=== PATIENT | male | born 1990 | race Caucasian/White ===

== ENCOUNTER 2024-05-04 12:40 | Emergency (ER) | payer MEDICAID, SELFPAY ==
[2024-05-04 12:40] VITALS: BP 150/111; PULSE 133; RESP 21; TEMP 36.8; O2SAT 100; BMI 26.6
[2024-05-04 12:55] VITALS: PULSE 136; RESP 19; O2SAT 98
--- NOTE | 2024-05-04 13:10 | PD.EDRME ---
Rapid Medical Screening Exam RME Arrival date/time: 05/04/24 12:40 Time Seen by Provider: 05/04/24 12:52 Vital signs: Vital Signs Temperature 98.3 F 05/04/24 12:40 Pulse Rate 133 H 05/04/24 12:40 Respiratory Rate 21 H 05/04/24 12:40 Blood Pressure 150/111 H 05/04/24 12:40 Pulse Oximetry (%) 100 05/04/24 12:40 Oxygen Delivery Method Room Air 05/04/24 12:40 RME Narrative: sob x20 minutes. Hx meth abuse
--- NOTE | 2024-05-04 13:11 | XR_ITS ---
Examination: AP chest single view TECHNIQUE: AP portable upright chest single view Seventh and time: May 04, 2024 1352 hours INDICATIONS: Shortness of breath beginning one hour ago. FINDINGS: Normal heart size The osseous structures are intact No pneumonia or pulmonary edema IMPRESSION: No active disease
--- NOTE | 2024-05-04 13:11 | EKG_ITS ---
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
--- NOTE | 2024-05-04 13:22 | PD.EDARRY ---
ED Arrhythmia Palp. RME/HPI General Chief Complaint: Anxiety Stated Complaint: ANXIETY Time Seen by Provider: 05/04/24 12:52 Arrival date/time: 05/04/24 12:40 RME / HPI RME / HPI narrative: sob x20 minutes. Hx meth abuse This section includes all my notes and documentations, including HPI, PE, and ED course.? Alfonso Agrawal MD HPI: 33 year old male with history of bipolar disorder, methamphetamine use and previous 5150 holds with mental health hospitalization presents to the ED BIBA from home for complaint of feeling anxious today. While in the ED patient complains of cotton mouth and feeling very thirsty. Denies any use of drugs at home. Denies taking prescription medications on a daily basis. Denies fevers, chills, chest pain, cough, abdominal pain, n/v. No other complaints. ROS: All negative except as documented in HPI. Physical Exam: General:? Alert and oriented.??Appears anxious. Eyes:? Conjunctivae and lids clear.?? ENT:? No nasal congestion.?? Neck:? Supple.?? Heart:? Sinus tachycardia at 150. Lungs:? No respiratory distress.?? Skin:? Warm and dry.?? Neuro:? Alert and oriented X 3.?? I reviewed all diagnostic test results. My interpretation of the EKG is?sinus tachycardia versus atrial flutter. My interpretation of the chest x-ray is no acute findings. Blood tests and urine tests?remarkable for negative D-dimer, negative troponin, negative BNP, and UDS positive for methamphetamine. At this point, diagnoses include?methamphetamine intoxication. Treatment here included?IV metoprolol 5 mg and oral metoprolol 100 mg. Significant improvement noted. Based on my best medical judgment, made decision no further evaluation or treatment indicated at this time.? Patient understands and agrees to the discharge instructions customized and printed, see below. Discharge instructions from Dr. Agrawal: 1. After extensive evaluation, fortunately there is no life-threatening condition.? Such as heart attack or pulmonary embolism (blood clots in your lungs) or pneumothorax (collapsed lung). 2. But methamphetamine major heart race two 150 beats per minute (almost 3X faster than normal) which can eventually cause fatal heart attacks. 3. Avoid all drugs, including methamphetamine. 4. See a private doctor on 05/07/2024. Ask to review all test results and official radiology reports, to make sure you receive all necessary follow-ups and monitoring. To make sure there is no serious underlying heart condition, ask to help you get more tests for your heart that cannot be done here in the ER.? Such as Holter Monitor (cardiac monitoring at home from a day to even a month), heart stress test (on treadmill or with medication), echocardiogram (imaging of your heart structures), heart catherization (checking for blockages in your heart arteries), and a referral to see a Paralegal Supervisor. Ask to help you stay clean. 5. Seek immediate medical care with worsening or with any concerns.?? Alfonso Agrawal MD Related Data Home Medications ?Medication ?Instructions ?Recorded ?Confirmed escitalopram oxalate 5 mg tablet 5 mg PO DAILY 03/13/24 03/13/24 olanzapine 5 mg tablet 5 mg PO DAILY 03/13/24 03/13/24 risperidone 0.5 mg tablet 1.5 mg PO BID 03/13/24 03/13/24 Previous Rx's ?Medication ?Instructions ?Recorded chlordiazepoxide HCl 25 mg capsule 25 mg PO Q8H PRN alcohol 11/22/20 withdrawal #30 caps amoxicillin 875 mg-potassium 1 tab PO BID #20 tabs 05/04/24 clavulanate 125 mg tablet ketorolac 10 mg tablet 10 mg PO Q8H PRN pain 5 days #14 05/04/24 tabs lidocaine HCl 2 % mucosal solution 5 ml PO Q3-4HRPRN PRN pain #100 mL 05/04/24 Allergies Allergy/AdvReac Type Severity Reaction Status Date / Time No Known Allergies Allergy Verified 05/04/24 16:29 Review of Systems Review of Systems Systems Reviewed: All systems reviewed, normal except as documented Past Medical History Past Medical History CARDIAC: Negative Congestive Heart Failure RESPIRATORY: Negative Chronic Obstructive Pulmonary Disease (COPD) GENITOURINARY: Negative Renal Disease ENDOCRINE: Negative Diabetes Mellitus Type 1 or Diabetes Mellitus Type 2 PSYCHO/SOCIAL: Positive Bipolar Disorder, Depression and Anxiety OTHER HISTORY: Negative Cancer Social History SMOKING STATUS: Never smoker ED Exam Narrative Physical exam: As noted in HPI Course Quality Measures none Orders Category Date Time Status EKG (ED ONLY) *Do not use* NOW Care 05/04/24 13:11 Completed Saline [Insert IV] NOW Care 05/04/24 13:19 Active Straight [In and Out Catheter] X1 Care 05/04/24 13:19 Active CXR [XR chest 1V] Stat Exams 05/04/24 13:11 Ordered EKG (ED Only) Stat Exams 05/04/24 13:11 Draft Acetaminophen Stat Lab 05/04/24 13:11 Ordered Alcohol, Blood Medical Stat Lab 05/04/24 13:11 Ordered BNP [B-Type Natriuretic Peptide] Stat Lab 05/04/24 13:11 Ordered CBC Stat Lab 05/04/24 13:11 Ordered CMP [Comprehensive Metabolic Panel] Stat Lab 05/04/24 13:11 Ordered D-Dimer Stat Lab 05/04/24 13:21 Ordered Drug Screen,Urine Stat Lab 05/04/24 13:11 Ordered Magnesium Stat Lab 05/04/24 13:11 Ordered Salicylate Stat Lab 05/04/24 13:11 Ordered Troponin I Stat Lab 05/04/24 13:11 Ordered UA [Urinalysis] Stat Lab 05/04/24 13:11 Ordered DILTIAZEM in D5W 125 MG Med 05/04/24 13:30 Ordered 125 mg in 125 ml IV 5 mg/hr Diltiazem Inj [Cardizem Inj] Med 05/04/24 13:19 Discontinued 25 mg IV X1 ONE Vital Signs Vital signs: Vital Signs Temperature 98.3 F 05/04/24 12:40 Pulse Rate 133 H 05/04/24 12:40 Respiratory Rate 21 H 05/04/24 12:40 Blood Pressure 150/111 H 05/04/24 12:40 Pulse Oximetry (%) 100 05/04/24 12:40 Oxygen Delivery Method Room Air 05/04/24 12:40 Arrhythmia/Palpitations MDM Narrative MDM Narrative:: Alana Carver am scribing for and in the presence of Dr. Agrawal. Patient data External records reviewed:: [facility] previous records (I reviewed ED visit 03/08/2024 where he was placed on a 5150 hold and observed in the ED until 03/14/2024 where he was transferred to [facility] ) Clinical information provided by:: patient Social determinants that could affect healthcare access:: substance use (Methamphetamine use ) Patient has the following chronic illnesses:: bipolar disorder, methamphetamine use and previous 5150 holds with mental health hospitalization How is presenting disease/condition affected by chronic disease/condition?: exacerbated by Evaluation data The following diagnostics were reviewed and interpreted by me:: lab results, radiology exam(s) and EKG tracing(s) (My interpretation of the EKG is: Atrial flutter (150 bpm) with nonspecific ST-T changes. Alfonso Agrawal MD) Lab and/or radiology exams considered but not ordered:: None Interpretation Summary: Methamphetamine intoxication Medications / Prescriptions Medications or Prescriptions considered but not ordered:: None Medication administrations:: IV and oral metoprolol Consultations Consultation(s) initiated? (list below): No Diagnosis Differential diagnosis arrhythmia/palpitations: palpitations, anxiety, sinus tachycardia, artial fibrillation, artial flutter and other (Methamphetamine tox occasion, electrolyte abnormalities) Most likely diagnosis given after review of the tests above:: Methamphetamine intoxication Admission Indicated Admission indicated?: not indicated Explain why admission is indicated or not indicated:: Admission criteria not met Admission Request Was there a request for admission?: No Disposition Plan Disposition Plan: Discharge Discharge Attestation Discharge Attestation: The patient and all family members were given an opportunity to ask questions and understood the discharge instructions. Discharge instructions specifically effects, indications for sooner follow up or return to the emergency department, and the expected course of current diagnosis. Patient condition: Stable Discharge Plan Plan Patient Disposition: HOME (Self Care) Prescriptions/Referrals Prescriptions/Med Rec: No Action chlordiazepoxide HCl 25 mg capsule 25 mg PO Q8H PRN (Reason: alcohol withdrawal) Qty: 30 0RF olanzapine 5 mg tablet 5 mg PO DAILY Patient Comments: TAKE 1 TABLET BY MOUTH EVERY DAY FOR 30 DAYS risperidone 0.5 mg tablet 1.5 mg PO BID escitalopram oxalate 5 mg tablet 5 mg PO DAILY Patient Comments: TAKE 1 TABLET BY MOUTH EVERY DAY ketorolac 10 mg tablet 10 mg PO Q8H PRN (Reason: pain) 5 Days Qty: 14 0RF amoxicillin-pot clavulanate 875-125 mg tablet 1 tab PO BID Qty: 20 0RF lidocaine HCl 2 % solution 5 ml PO Q3-4HRPRN PRN (Reason: pain) Qty: 100 0RF Referrals: Caleb Herman MD [Primary Care Provider] - In 1 week Problem List Clinical Impression: Methamphetamine intoxication Patient/Caregiver Discharge Instructions Discharge Activity: activity as tolerated Education Materials: ED Drug Abuse Additional Instructions: Discharge instructions from Dr. Agrawal: 1. After extensive evaluation, fortunately there is no life-threatening condition.? Such as heart attack or pulmonary embolism (blood clots in your lungs) or pneumothorax (collapsed lung). 2. But methamphetamine major heart race two 150 beats per minute (almost 3X faster than normal) which can eventually cause fatal heart attacks. 3. Avoid all drugs, including methamphetamine. 4. See a private doctor on 05/07/2024. Ask to review all test results and official radiology reports, to make sure you receive all necessary follow-ups and monitoring. To make sure there is no serious underlying heart condition, ask to help you get more tests for your heart that cannot be done here in the ER.? Such as Holter Monitor (cardiac monitoring at home from a day to even a month), heart stress test (on treadmill or with medication), echocardiogram (imaging of your heart structures), heart catherization (checking for blockages in your heart arteries), and a referral to see a Paralegal Supervisor. Ask to help you stay clean. 5. Seek immediate medical care with worsening or with any concerns.?? Print Language: [place] Stand Alone Forms: [employer] Award Info., Patient Portal Info Letter
[2024-05-04 13:32] VITALS: BP 167/119; PULSE 140
[2024-05-04] MEDS: METOPROLOL TARTRATE 25 MG TABLET 100 MG PO (13:32)
[2024-05-04 13:43] VITALS: BP 167/119; PULSE 134
[2024-05-04] MEDS: METOPROLOL TARTRATE INJ 1 MG/ML AMP 5 ML 5 MG IVP (13:43)
[2024-05-04 13:44] LABS: Collection Type, Urine Clean Catch; Squamous Epithelial Cell,Urine 0 /hpf (0-5)
[2024-05-04 13:47] LABS: Basophils % (Auto) 0 % (0-2.5); Eosinophils % (Auto) 0 % (0-10); Hematocrit 43.2 % (41.0-53.0); Hemoglobin 15.2 g/dL (13.5-16.0); Immature Granulocytes % (Auto) 0 % (0-0); Immature Granulocytes Auto 0.03 Thou/mm3 (0.00-0.00); Lymphocytes # (Auto) 1.3 Thou/mm3 (1.0-4.8); Lymphocytes % (Auto) 13 % (10-50); Mean Corpuscular HGB Conc 35.2 g/dl (31.0-37.0); Mean Corpuscular Hemoglobin 30.3 pg (25.0-35.0); Mean Corpuscular Volume 86 fL (80-100); Monocytes # (Auto) 0.5 Thou/mm3 (0.0-0.8); Monocytes % (Auto) 5 % (0-12); Neutrophils # (Auto) 7.8 Thou/mm3 (1.8-7.7); Neutrophils % (Auto) 80 % (37-80); Nucleated Red Blood Cell % 0 /100 WBC (0); Platelet Count 223 Thou/mm3 (140-440); RDW Standard Deviation 41.1 fL (35.1-43.9); Red Blood Count 5.02 Miln/mm3 (4.50-5.90); White Blood Count 9.8 Thou/mm3 (3.8-10.6)
[2024-05-04 13:49] VITALS: BP 167/119; PULSE 113; RESP 23; TEMP 36.4; O2SAT 100
--- NOTE | 2024-05-04 13:52 | EKG_ITS ---
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
[2024-05-04 13:57] LABS: Bilirubin,Urine Negative (Negative); Blood,Urine Negative (Negative); Clarity,Urine Clear (Clear/Hazy); Color,Urine Lt-Yellow (Lt Yel-Yel); Glucose, Urine Negative (Negative); Ketones,Urine 1+ (Negative); Leukocyte Esterase,Urine Negative (Negative); Nitrite,Urine Negative (Negative); PH,Urine 6.5 (5.0-7.0); Protein,Urine Negative (Neg - Trace); RBC,Urine 3 /hpf (0-3); Specific Gravity,Urine 1.014 (1.001-1.035); Urobilinogen,Urine Negative mg/dL (0.0-1.0); WBC,Urine 2 /hpf (0-5)
[2024-05-04 14:05] LABS: Amphetamine/Methamp Scrn,U Positive (Negative); Barbiturate Screen,Urine Negative (Negative); Benzodiazepines Screen,Urine Negative (Negative); Benzoylecgonine Screen, Ur Negative (Negative); Fentanyl Screen,Urine Negative (Negative); Opiate Screen,Urine Negative (Negative); THC Screen,Urine Negative (Negative)
[2024-05-04 14:10] LABS: Acetaminophen < 2.0 mcg/mL (10.0-20.0); Alanine Aminotransferase 46 U/L (10-49); Albumin, Serum 5.5 gm/dL (3.5-5.0); Albumin/Globulin Ratio 2.1 (1.2-2.2); Alcohol, Blood Medical < 3.0 mg/dL (0-10.0); Alkaline Phosphatase 83 U/L (46-116); Anion Gap 5 (7-16); Aspartate Amino Transferase 27 U/L (0-34); BUN/Creatinine Ratio 13 Ratio (12-20); Bilirubin,Total 0.9 mg/dL (0.3-1.2); Blood Urea Nitrogen 12 mg/dL (9-23); Calcium 9.8 mg/dL (8.3-10.6); Calcium (Corrected) 9.8 mg/dL (8.5-10.1); Carbon Dioxide 21.7 mMol/L (20.0-31.0); Chloride 101 mMol/L (98-107); Creatinine (Component) 0.9 mg/dL (0.6-1.3); Estimated Creatinine Clearance 103.4 mL/min (>60); Globulin 2.6 gm/dL (2.3-3.5); Glucose 102 mg/dL (74-106); Magnesium 2.1 mg/dL (1.6-2.6); Osmolality,Calculated 256 (275-295); Potassium 3.6 mMol/L (3.4-5.1); Salicylate < 3.0 mg/dL; Sodium 128 mMol/L (136-145); Total Protein 8.1 gm/dL (5.7-8.2); Troponin I < 0.020 ng/mL (0.0-0.045); eGFR > 60 See Note
[2024-05-04 14:13] LABS: B-Type Natriuretic Peptide < 20 pg/mL (0-100)
[2024-05-04 14:19] LABS: D-Dimer < 250 ng/mL (<600)
[2024-05-04 14:49] VITALS: BP 146/101; PULSE 102; RESP 19; O2SAT 98
[2024-05-04 15:05] LABS: Thyroid Stimulating Hormone 1.07 uIU/mL (0.55-4.78)
--- NOTE | 2024-05-04 15:49 | PC.NURSE ---
Discharge given to patient. Patient verbalized understaning. No signs of acute distress noted.
--- NOTE | 2024-05-04 15:56 | PC.CC ---
Ariella LUIS was consulted by MONIKA Joshi regarding patient needing a ride back home upon discharge. ASW arranged transportation via [facility] for patient back home.
== END 2024-05-04 15:52 | disposition home or self-care (01) ==
PROVIDERS: Physician Assistant; Emergency Provider Emergency Medicine; PCP Family Medicine
DX: F15.129 Other stimulant abuse with intoxication, unspecified (principal); R00.0 Tachycardia, unspecified
CPT/HCPCS: 36415; 71045; 80053; 80307; 80320; 80329; 81001; 83735; 83880; 84443; 84484; 85025; 85379; 93005; 96374; 99284; J3490; A9270; G0480

== ENCOUNTER 2024-05-04 16:27 | Emergency (ER) | payer MEDICAID, SELFPAY ==
[2024-05-04 16:39] VITALS: BP 157/89; PULSE 108; RESP 20; TEMP 36.8; O2SAT 98; BMI 25.8
--- NOTE | 2024-05-04 16:50 | EDNOTE_ITS ---
ED Dental RME/HPI General Chief complaint: Dental/Oral/Throat Stated complaint: MOUTH PAIN 1500 TODAY Time Seen by Provider: 05/04/24 16:33 Arrival date/time: 05/04/24 16:27 RME / HPI RME / HPI Narrative: This section includes all my notes and documentations, including HPI, PE, and ED course. Alfonso Agrawal MD HPI: 33-year-old male here to be evaluated with several days of worsening right-sided dental pain, upper and lower. No fever or chills. No body aches or malaise. No cough or congestion. No sore throat. No other complaints. ROS: All negative except as documented in HPI. Physical Exam: General: Alert and oriented. Eyes: Conjunctivae and lids clear. ENT: In the mouth, diffuse and severe dental caries noted. Right-sided upper and lower gums remarkable for erythema and edema and tenderness. No fluctuant mass palpable. Neck: Supple. Lungs: No respiratory distress. Skin: Warm and dry. Neuro: Alert and oriented X 3. Make clinical diagnosis of infected dental caries. Prescribed ABX and recommended more care with dentist. Based on my best medical judgment, made decision no further evaluation or treatment indicated at this time. Patient understands and agrees to the discharge instructions customized and printed, see below. Discharge Instructions from Dr. Agrawal: --After evaluation, your dental pain is due to an underlying infection.?? --Take Augmentin to help kill the germs causing your infection.? Unless we treat the underlying infection, pain medications won?t work.?? --Ketorolac as needed.? Will work better with the antibiotics.? --Apply Lidocaine as needed.? Soak Lidocaine in a gauze and apply in the area of pain for 15 minutes to help the pain for a couple of hours.?? --Most importantly, see a dentist of your choice on 05/07/2024 for definitive treatment you need not available in the ER.? You will need to call dental offices in all surrounding towns to find a dentist who can see you and treat you right away.? ?Seek immediate medical care with fever or with any concerns. Alfonso Agrawal MD Related Data Home Medications ?Medication ?Instructions ?Recorded ?Confirmed escitalopram oxalate 5 mg tablet 5 mg PO DAILY 03/13/24 03/13/24 olanzapine 5 mg tablet 5 mg PO DAILY 03/13/24 03/13/24 risperidone 0.5 mg tablet 1.5 mg PO BID 03/13/24 03/13/24 Previous Rx's ?Medication ?Instructions ?Recorded chlordiazepoxide HCl 25 mg capsule 25 mg PO Q8H PRN alcohol 11/22/20 withdrawal #30 caps amoxicillin 875 mg-potassium 1 tab PO BID #20 tabs 05/04/24 clavulanate 125 mg tablet ketorolac 10 mg tablet 10 mg PO Q8H PRN pain 5 days #14 05/04/24 tabs lidocaine HCl 2 % mucosal solution 5 ml PO Q3-4HRPRN PRN pain #100 mL 05/04/24 Allergies Allergy/AdvReac Type Severity Reaction Status Date / Time No Known Allergies Allergy Verified 05/04/24 16:29 Course Quality Measures none Vital Signs Vital signs: Vital Signs Temperature 98.2 F 05/04/24 16:39 Pulse Rate 108 H 05/04/24 16:39 Respiratory Rate 20 05/04/24 16:39 Blood Pressure 157/89 H 05/04/24 16:39 Pulse Oximetry (%) 98 05/04/24 16:39 Oxygen Delivery Method Room Air 05/04/24 16:39 Dental / Oral Patient data External records reviewed:: [facility] previous records Clinical information provided by:: patient Social determinants that could affect healthcare access:: substance use Patient has the following chronic illnesses:: Substance abuse How is presenting disease/condition affected by chronic disease/condition?: exacerbated by Evaluation data The following diagnostics were reviewed and interpreted by me:: other (specify) (No diagnostic tests ordered) Lab and/or radiology exams considered but not ordered:: None Interpretation Summary: Not applicable Medications / Prescriptions Medications or Prescriptions considered but not ordered:: None Medication administrations:: None Consultations Consultation(s) initiated? (list below): No Diagnosis Dental Differential Diagnosis: other (Infected dental caries) Most likely diagnosis given after review of the tests above:: Infected dental caries Admission Indicated Admission indicated?: not indicated Explain why admission is indicated or not indicated:: Admission criteria not met Admission Request Was there a request for admission?: No Disposition Plan Disposition Plan: Discharge Discharge Attestation Discharge Attestation: The patient and all family members were given an opportunity to ask questions and understood the discharge instructions. Discharge instructions specifically effects, indications for sooner follow up or return to the emergency department, and the expected course of current diagnosis. Patient condition: Stable Discharge Plan Plan Patient Disposition: HOME (Self Care) Prescriptions/Referrals Prescriptions/Med Rec: New ketorolac 10 mg tablet 10 mg PO Q8H PRN (Reason: pain) 5 Days Qty: 14 0RF amoxicillin-pot clavulanate 875-125 mg tablet 1 tab PO BID Qty: 20 0RF lidocaine HCl 2 % solution 5 ml PO Q3-4HRPRN PRN (Reason: pain) Qty: 100 0RF No Action chlordiazepoxide HCl 25 mg capsule 25 mg PO Q8H PRN (Reason: alcohol withdrawal) Qty: 30 0RF olanzapine 5 mg tablet 5 mg PO DAILY Patient Comments: TAKE 1 TABLET BY MOUTH EVERY DAY FOR 30 DAYS risperidone 0.5 mg tablet 1.5 mg PO BID escitalopram oxalate 5 mg tablet 5 mg PO DAILY Patient Comments: TAKE 1 TABLET BY MOUTH EVERY DAY Problem List Clinical Impression: Infected dental caries Patient/Caregiver Discharge Instructions Discharge Activity: activity as tolerated Education Materials: ED Dental Cavity, ED Dental Abscess Additional Instructions: Discharge Instructions from Dr. Agrawal: --After evaluation, your dental pain is due to an underlying infection.?? --Take Augmentin to help kill the germs causing your infection.? Unless we treat the underlying infection, pain medications won?t work.?? --Ketorolac as needed.? Will work better with the antibiotics.? --Apply Lidocaine as needed.? Soak Lidocaine in a gauze and apply in the area of pain for 15 minutes to help the pain for a couple of hours.?? --Most importantly, see a dentist of your choice on 05/07/2024 for definitive treatment you need not available in the ER.? You will need to call dental offices in all surrounding towns to find a dentist who can see you and treat you right away.? ?Seek immediate medical care with fever or with any concerns. Print Language: [place] Stand Alone Forms: Muna Award Info., Patient Portal Info Letter
--- NOTE | 2024-05-04 19:12 | PC.NURSE ---
pt eloped 1645. Pt was to be discharged and was supposed to receive abx for underlying dental infection. Pt eloped and never received discharge instruction or medications.
== END 2024-05-04 16:45 | disposition left against medical advice (07) ==
LOC: SERX 16:58
PROVIDERS: Emergency Provider Emergency Medicine
DX: K04.7 Periapical abscess without sinus (principal); K02.9 Dental caries, unspecified
CPT/HCPCS: 99281

== ENCOUNTER 2024-05-22 16:21 | Emergency (ER) | payer MEDICAID, SELFPAY ==
[2024-05-22 16:22] VITALS: PULSE 74; RESP 20; O2SAT 99
[2024-05-22 16:23] VITALS: BP 142/85; PULSE 146; RESP 20; TEMP 36.9; O2SAT 95
[2024-05-22 16:27] VITALS: BMI 26.6
--- NOTE | 2024-05-22 16:47 | PD.EDADULT ---
ED General RME/HPI General Chief complaint: Psychiatric Symptoms Stated complaint: HOLD Time Seen by Provider: 05/22/24 16:43 Arrival date/time: 05/22/24 16:21 CC: On psychiatric hold, patient has no specific complaints, reports the patient has been awake for the last 2 to 3 days mother is concerned the patient may have a urinary tract infection, the patient has not been eating by admission. Patient denies fever chills chest pain or shortness of breath. Patient denies he heard voices that told him they are going to hurt him Related Data Home Medications ?Medication ?Instructions ?Recorded ?Confirmed olanzapine 5 mg tablet 5 mg PO DAILY 03/13/24 05/22/24 gabapentin 300 mg capsule 100 mg PO TID 05/22/24 05/22/24 Allergies Allergy/AdvReac Type Severity Reaction Status Date / Time No Known Allergies Allergy Verified 05/22/24 16:27 Review of Systems Review of Systems Narrative Review of Systems: GEN: No fever, no chills, no weight loss EYES: No discharge, no visual changes, no pain HEENT: No ear pain, no congestion, no sore throat PULM: No shortness of breath, no cough, no congestion CV: No chest pain, no dyspnea on exertion, no palpitations GI: No nausea, no vomiting, no diarrhea, no pain, no constipation : No frequency, no urgency, no dysuria MUSC/SKEL: No joint pain, no back pain SKIN: No rash PSYCH: No hallucinations, no depression HEME/LYMPH: No easy bleeding or bruising tendencies NEURO: No weakness, no headache Past Medical History Past Medical History CARDIAC: Negative Congestive Heart Failure RESPIRATORY: Negative Chronic Obstructive Pulmonary Disease (COPD) GENITOURINARY: Negative Renal Disease ENDOCRINE: Negative Diabetes Mellitus Type 1 or Diabetes Mellitus Type 2 PSYCHO/SOCIAL: Positive Bipolar Disorder, Depression and Anxiety OTHER HISTORY: Negative Cancer Social History SMOKING STATUS: Never smoker ED Exam Narrative Physical exam: [General: Anxious but not in any acute distress Head normocephalic HEENT: Within acceptable limits Neck is supple nontender Chest equal chest rise nontender to palpation Respiratory: Clear to auscultation no wheezes crackles or rubs CV: Rate rhythm is regular no murmurs rubs or clicks Abdomen is soft nontender no masses positive bowel sounds all 4 quadrants Back: No CVA tenderness no spinous process tenderness from cervical spine thoracic and lumbar spine Skin: Intact no petechiae rash induration ulceration or crepitus Extremities: Moving all extremity against resistance cap refill less than 2 seconds neurosensory intact Neuro: Awake alert oriented x3 Glascow coma 15 no focal deficits] Course Quality Measures none Orders Category Date Time Status Saline [Insert IV] NOW Care 05/22/24 17:58 Completed Alcohol, Blood Medical Stat Lab 05/22/24 18:17 Completed CBC Stat Lab 05/22/24 16:58 Completed CMP [Comprehensive Metabolic Panel] Stat Lab 05/23/24 03:44 Completed CMP [Comprehensive Metabolic Panel] Stat Lab 05/22/24 16:58 Completed Creatine Kinase Stat Lab 05/23/24 03:44 Completed Creatine Kinase Stat Lab 05/22/24 18:17 Completed Creatine Kinase Stat Lab 05/22/24 20:56 Completed Drug Screen,Urine Stat Lab 05/22/24 17:24 Completed Urinalysis Stat Lab 05/22/24 17:24 Completed DiphenhydrAMINE INJ [Benadryl Inj] Med 05/22/24 18:15 Discontinued 50 mg IVP X1 ONE Haloperidol Lactate [Haldol Inj] Med 05/22/24 18:15 Discontinued 5 mg IV Q6HR PRN LORazepam [Ativan Inj] Med 05/22/24 18:15 Discontinued 2 mg IVP X1 ONE Sodium Chloride 0.9% 1000 ml [Ns] 1,000 ml Med 05/22/24 19:39 Discontinued IV 250 mls/hr Sodium Chloride 0.9% 1000 ml [Ns] 1,000 ml Med 05/22/24 17:59 Discontinued IV 999 mls/hr Sodium Chloride 0.9% 1000 ml [Ns] 1,000 ml Med 05/22/24 17:59 Discontinued IV 999 mls/hr Late Tray Request Routine Oth 05/23/24 08:09 Active Vital Signs Vital signs: Vital Signs Temperature 98.4 F 05/22/24 16:23 Pulse Rate 146 H 05/22/24 16:23 Respiratory Rate 20 05/22/24 16:23 Blood Pressure 142/85 H 05/22/24 16:23 Pulse Oximetry (%) 95 05/22/24 16:23 Oxygen Delivery Method Room Air 05/22/24 16:23 [facility] Patient data External records reviewed:: [facility] previous records and EMS form Clinical information provided by:: patient and EMS Social determinants that could affect healthcare access:: none Patient has the following chronic illnesses:: Methamphetamine use polysubstance abuse How is presenting disease/condition affected by chronic disease/condition?: exacerbated by Evaluation data The following diagnostics were reviewed and interpreted by me:: lab results Lab and/or radiology exams considered but not ordered:: CBC shows a mild leukocytosis of 12,000 with no anemia thrombocytopenia CMP shows a BUN and creatinine of 3 7 and 1.6. No significant lecture imbalances. T. bili is 2.0 with some mild transaminitis (review of the medical record show the patient has a T. bili that is a wide ranging from as high as 2.6 to normal.) Urine is negative for UTI UDS is positive for methamphetamines. CK is 1900, after 2 L reflex CK is 1350. Interpretation Summary: Schizophrenia with methamphetamine use Medications Medications considered but not ordered:: None Medication administrations:: Medication Administration History Discontinued Medications Diphenhydramine HCl (Diphenhydramine Inj 50 Mg/Ml Vial) 50 mg IVP X1 ONE Stop: 05/22/24 18:16 Last Admin: 05/22/24 18:22 Dose: 50 mg Documented By: GM Haloperidol Lactate (Haloperidol Lact Inj 5 Mg/Ml Vial) 5 mg IV Q6HR PRN PRN Reason: AGITATION (SEVERE) Stop: 05/27/24 18:14 Last Admin: 05/22/24 18:22 Dose: 5 mg Documented By: GM Sodium Chloride (Ns) 1,000 mls @ 999 mls/hr IV .Q1H1M ONE Stop: 05/22/24 18:59 Last Infusion: 05/22/24 19:20 Dose: Infused Documented By: Admin: 05/22/24 18:18 Dose: 999 mls/hr Documented By: GM Sodium Chloride (Ns) 1,000 mls @ 999 mls/hr IV .Q1H1M ONE Stop: 05/22/24 18:59 Last Infusion: 05/22/24 19:20 Dose: Infused Documented By: Admin: 05/22/24 18:18 Dose: 999 mls/hr Documented By: GM Sodium Chloride (Ns) 1,000 mls @ 250 mls/hr IV .Q4H LUIGI Stop: 06/21/24 19:38 Last Admin: 05/23/24 08:10 Dose: 250 mls/hr Documented By: Infusion: 05/23/24 08:10 Dose: Infused Documented By: Admin: 05/23/24 04:32 Dose: 250 mls/hr Documented By: Infusion: 05/23/24 03:24 Dose: Infused Documented By: Admin: 05/22/24 22:56 Dose: 250 mls/hr Documented By: Infusion: 05/22/24 22:55 Dose: Infused Documented By: Admin: 05/22/24 20:19 Dose: 250 mls/hr Documented By: CVL Lorazepam (Lorazepam 2 Mg/Ml Vial) 2 mg IVP X1 ONE Stop: 05/22/24 18:16 Last Admin: 05/22/24 18:22 Dose: 2 mg Documented By: GM None Consultations Consultation(s) initiated? (list below): No Diagnosis Differential Diagnosis ED Complaint MDM: Schizophrenia polysubstance abuse electrolyte imbalance rhabdomyolysis Most likely diagnosis given after review of the tests above:: Schizophrenia rhabdomyolysis Admission Indicated Admission indicated?: indicated Explain why admission is indicated or not indicated:: Transfer Admission Request Was there a request for admission?: No Disposition Plan Disposition Plan: Transfer Medical Decision Making Differential Diagnosis Differential Diagnosis: Schizophrenia polysubstance abuse electrolyte imbalance rhabdomyolysis Lab Data 05/22/24 16:58 05/23/24 03:44 Labs: Lab Results 05/22/24 05/22/24 05/22/24 Range/Units 16:58 17:24 18:17 WBC 12.2 H (3.8-10.6) Thou/mm3 RBC 5.35 (4.50-5.90) Miln/mm3 Hgb 16.2 H (13.5-16.0) g/dL Hct 45.8 (41.0-53.0) % MCV 86 (80-100) fL MCH 30.3 (25.0-35.0) pg MCHC 35.4 (31.0-37.0) g/dl RDW Std Deviation 40.7 (35.1-43.9) fL Plt Count 307 D (140-440) Thou/mm3 Neut % (Auto) 81 H (37-80) % Lymph % (Auto) 10 (10-50) % Hernando % (Auto) 8 (0-12) % Eos % (Auto) 0 (0-10) % Baso % (Auto) 1 (0-2.5) % Neut # (Auto) 9.8 H (1.8-7.7) Thou/mm3 Lymph # (Auto) 1.3 (1.0-4.8) Thou/mm3 Hernando # (Auto) 0.9 H (0.0-0.8) Thou/mm3 Eos # (Auto) 0.0 (0.0-0.5) Thou/mm3 Baso # (Auto) 0.1 (0.0-0.2) Thou/mm3 Immature Gran # (Auto) 0.05 H (0.00-0.00) Thou/mm3 Absolute Nucleated RBC 0.00 (0.00-0.00) Thou/mm3 Immature Gran % 0 (0-0) % Nucleated RBC % 0 (0) /100 WBC Sodium 137 (136-145) mMol/L Potassium 3.9 (3.4-5.1) mMol/L Chloride 103 (98-107) mMol/L Carbon Dioxide 21.0 (20.0-31.0) mMol/L Anion Gap 13 (7-16) BUN 37 H (9-23) mg/dL Creatinine 1.6 H (0.6-1.3) mg/dL Estim Creat Clear Calc 60.2 L (>60) mL/min eGFR 57 L (60 - ) See Note BUN/Creatinine Ratio 23 H (12-20) Ratio Glucose 128 H (74-106) mg/dL Calculated Osmolality 284 (275-295) Calcium 10.4 (8.3-10.6) mg/dL Corrected Calcium 10.4 H (8.5-10.1) mg/dL Total Bilirubin 2.0 H (0.3-1.2) mg/dL AST 106 H (0-34) U/L ALT 97 H (10-49) U/L Alkaline Phosphatase 84 (46-116) U/L Total Creatine Kinase 1978 H (34-171) U/L Total Protein 8.5 H (5.7-8.2) gm/dL Albumin 5.6 H (3.5-5.0) gm/dL Globulin 2.9 (2.3-3.5) gm/dL Albumin/Globulin Ratio 1.9 (1.2-2.2) Ur Collection Type Clean Catch Urine Color Yellow (Lt Yel-Yel) Urine Clarity Clear (Clear/Hazy) Urine pH 6.0 (5.0-7.0) Ur Specific Diamond 1.034 (1.001-1.035) Urine Protein 2+ A (Neg - Trace) Urine Glucose (UA) Negative (Negative) Urine Ketones 2+ A (Negative) Urine Blood Negative (Negative) Urine Nitrite Negative (Negative) Urine Bilirubin 1+ A (Negative) Urine Urobilinogen (Auto) 2.0 (0.0-1.0) mg/dL Ur Leukocyte Esterase Negative (Negative) Urine RBC 2 (0-3) /hpf Urine WBC 3 (0-5) /hpf Ur Squamous Epith Cells < 1 (0-5) /hpf Urine Bacteria None (None) Hyaline Casts 1 (0-1) /hpf Urine Opiates Screen Negative (Negative) Urine Fentanyl Screen Negative (Negative) Ur Barbiturates Screen Negative (Negative) U Amphetamin/Meth Scrn Positive A (Negative) U Benzodiazepines Scrn Negative (Negative) U Cocaine Metab Screen Negative (Negative) U Marijuana (THC) Screen Negative (Negative) Ethyl Alcohol < 3.0 (0-10.0) mg/dL 05/22/24 05/23/24 Range/Units 20:56 03:44 WBC (3.8-10.6) Thou/mm3 RBC (4.50-5.90) Miln/mm3 Hgb (13.5-16.0) g/dL Hct (41.0-53.0) % MCV (80-100) fL MCH (25.0-35.0) pg MCHC (31.0-37.0) g/dl RDW Std Deviation (35.1-43.9) fL Plt Count (140-440) Thou/mm3 Neut % (Auto) (37-80) % Lymph % (Auto) (10-50) % Hernando % (Auto) (0-12) % Eos % (Auto) (0-10) % Baso % (Auto) (0-2.5) % Neut # (Auto) (1.8-7.7) Thou/mm3 Lymph # (Auto) (1.0-4.8) Thou/mm3 Hernando # (Auto) (0.0-0.8) Thou/mm3 Eos # (Auto) (0.0-0.5) Thou/mm3 Baso # (Auto) (0.0-0.2) Thou/mm3 Immature Gran # (Auto) (0.00-0.00) Thou/mm3 Absolute Nucleated RBC (0.00-0.00) Thou/mm3 Immature Gran % (0-0) % Nucleated RBC % (0) /100 WBC Sodium 139 (136-145) mMol/L Potassium 4.1 (3.4-5.1) mMol/L Chloride 108 H (98-107) mMol/L Carbon Dioxide 25.5 (20.0-31.0) mMol/L Anion Gap 6 L (7-16) BUN 20 (9-23) mg/dL Creatinine 1.0 D (0.6-1.3) mg/dL Estim Creat Clear Calc 96.4 (>60) mL/min eGFR > 60 (60 - ) See Note BUN/Creatinine Ratio 20 (12-20) Ratio Glucose 94 (74-106) mg/dL Calculated Osmolality 280 (275-295) Calcium 8.5 D (8.3-10.6) mg/dL Corrected Calcium 8.5 D (8.5-10.1) mg/dL Total Bilirubin 1.8 H (0.3-1.2) mg/dL AST 82 H (0-34) U/L ALT 89 H (10-49) U/L Alkaline Phosphatase 64 D (46-116) U/L Total Creatine Kinase 1358 H D 1140 H D (34-171) U/L Total Protein 6.1 (5.7-8.2) gm/dL Albumin 4.1 D (3.5-5.0) gm/dL Globulin 2.0 L (2.3-3.5) gm/dL Albumin/Globulin Ratio 2.1 (1.2-2.2) Ur Collection Type Urine Color (Lt Yel-Yel) Urine Clarity (Clear/Hazy) Urine pH (5.0-7.0) Ur Specific Diamond (1.001-1.035) Urine Protein (Neg - Trace) Urine Glucose (UA) (Negative) Urine Ketones (Negative) Urine Blood (Negative) Urine Nitrite (Negative) Urine Bilirubin (Negative) Urine Urobilinogen (Auto) (0.0-1.0) mg/dL Ur Leukocyte Esterase (Negative) Urine RBC (0-3) /hpf Urine WBC (0-5) /hpf Ur Squamous Epith Cells (0-5) /hpf Urine Bacteria (None) Hyaline Casts (0-1) /hpf Urine Opiates Screen (Negative) Urine Fentanyl Screen (Negative) Ur Barbiturates Screen (Negative) U Amphetamin/Meth Scrn (Negative) U Benzodiazepines Scrn (Negative) U Cocaine Metab Screen (Negative) U Marijuana (THC) Screen (Negative) Ethyl Alcohol (0-10.0) mg/dL Discharge Plan Plan Patient Disposition: [facility] Facility Disposition Comment: [facility] Prescriptions/Referrals Prescriptions/Med Rec: No Action olanzapine 5 mg tablet 5 mg PO DAILY Patient Comments: TAKE 1 TABLET BY MOUTH EVERY DAY FOR 30 DAYS gabapentin 300 mg capsule 100 mg PO TID Referrals: Igor Cabrera MD [Primary Care Provider] - In 1 week Problem List Clinical Impression: Schizophrenia, Bipolar disorder, Methamphetamine abuse, Rhabdomyolysis Patient/Caregiver Discharge Instructions Print Language: Bengali Stand Alone Forms: Muna Award Info., Patient Portal Info Letter PA/HUMAN RESOURCES TRAINER Supervising Physician PA/HUMAN RESOURCES TRAINER Supervising Physician: Ankush Carnes ENP
--- NOTE | 2024-05-22 16:50 | PC.CC ---
Pt Carlton Etienne is a 33 yr old male to ED on 5150 hold placed by [facility] Crisis team. Hold placed for DTS. From hold pt responding to stimuli, refusing to eat. Pt is non-complaint with prescribed MH medications, pt refusing to engage in services. Pt recently d/c from [facility] facility in [place] on 05/19/24. At this time pt is pending medical clearance for placement.
[2024-05-22 17:06] LABS: Basophils # (Auto) 0.1 Thou/mm3 (0.0-0.2); Basophils % (Auto) 1 % (0-2.5); Eosinophils % (Auto) 0 % (0-10); Hematocrit 45.8 % (41.0-53.0); Hemoglobin 16.2 g/dL (13.5-16.0); Immature Granulocytes % (Auto) 0 % (0-0); Immature Granulocytes Auto 0.05 Thou/mm3 (0.00-0.00); Lymphocytes # (Auto) 1.3 Thou/mm3 (1.0-4.8); Lymphocytes % (Auto) 10 % (10-50); Mean Corpuscular HGB Conc 35.4 g/dl (31.0-37.0); Mean Corpuscular Hemoglobin 30.3 pg (25.0-35.0); Mean Corpuscular Volume 86 fL (80-100); Monocytes # (Auto) 0.9 Thou/mm3 (0.0-0.8); Monocytes % (Auto) 8 % (0-12); Neutrophils # (Auto) 9.8 Thou/mm3 (1.8-7.7); Neutrophils % (Auto) 81 % (37-80); Nucleated Red Blood Cell % 0 /100 WBC (0); Platelet Count 307 Thou/mm3 (140-440); RDW Standard Deviation 40.7 fL (35.1-43.9); Red Blood Count 5.35 Miln/mm3 (4.50-5.90); White Blood Count 12.2 Thou/mm3 (3.8-10.6)
[2024-05-22 17:29] LABS: Alanine Aminotransferase 97 U/L (10-49); Albumin, Serum 5.6 gm/dL (3.5-5.0); Albumin/Globulin Ratio 1.9 (1.2-2.2); Alkaline Phosphatase 84 U/L (46-116); Anion Gap 13 (7-16); Aspartate Amino Transferase 106 U/L (0-34); BUN/Creatinine Ratio 23 Ratio (12-20); Blood Urea Nitrogen 37 mg/dL (9-23); Calcium 10.4 mg/dL (8.3-10.6); Calcium (Corrected) 10.4 mg/dL (8.5-10.1); Chloride 103 mMol/L (98-107); Creatinine (Component) 1.6 mg/dL (0.6-1.3); Estimated Creatinine Clearance 60.2 mL/min (>60); Globulin 2.9 gm/dL (2.3-3.5); Glucose 128 mg/dL (74-106); Osmolality,Calculated 284 (275-295); Potassium 3.9 mMol/L (3.4-5.1); Sodium 137 mMol/L (136-145); Total Protein 8.5 gm/dL (5.7-8.2); eGFR 57 See Note
[2024-05-22 17:58] LABS: Collection Type, Urine Clean Catch
[2024-05-22] MEDS: SODIUM CHLORIDE 0.9% 1000 ML 1,000 ML 999 ML IV ×2 (18:18)
[2024-05-22 18:20] VITALS: BP 108/60; PULSE 126; RESP 20; TEMP 36.7; O2SAT 97
[2024-05-22] MEDS: LORazepam 2 MG/ML VIAL IVP (18:22)
[2024-05-22] MEDS: DiphenhydrAMINE INJ 50 MG/ML VIAL IVP (18:22)
[2024-05-22] MEDS: HALOPERIDOL LACT INJ 5 MG/ML VIAL IV (18:22)
[2024-05-22 18:24] LABS: Amphetamine/Methamp Scrn,U Positive (Negative); Barbiturate Screen,Urine Negative (Negative); Benzodiazepines Screen,Urine Negative (Negative); Benzoylecgonine Screen, Ur Negative (Negative); Bilirubin,Urine 1+ (Negative); Blood,Urine Negative (Negative); Clarity,Urine Clear (Clear/Hazy); Color,Urine Yellow (Lt Yel-Yel); Fentanyl Screen,Urine Negative (Negative); Glucose, Urine Negative (Negative); Hyaline Casts,Urine 1 /hpf (0-1); Ketones,Urine 2+ (Negative); Leukocyte Esterase,Urine Negative (Negative); Nitrite,Urine Negative (Negative); Opiate Screen,Urine Negative (Negative); Protein,Urine 2+ (Neg - Trace); RBC,Urine 2 /hpf (0-3); Specific Gravity,Urine 1.034 (1.001-1.035); Squamous Epithelial Cell,Urine < 1 /hpf (0-5); THC Screen,Urine Negative (Negative); WBC,Urine 3 /hpf (0-5)
--- NOTE | 2024-05-22 18:31 | PC.NURSE ---
Erika LESTER ELOCUTION TEACHER MADE AWARE THAT PT TACHYCARDIC AT 126. NO NEW ORDERS AT THIS TIME. 2L OF NS BOLUS IV CURRENTLY RUNNING.
[2024-05-22 19:35] LABS: Creatine Kinase 1978 U/L (34-171)
[2024-05-22 20:02] LABS: Alcohol, Blood Medical < 3.0 mg/dL (0-10.0)
[2024-05-22] MEDS: SODIUM CHLORIDE 0.9% 1000 ML 1,000 ML 250 ML IV ×2 (20:19→22:56)
[2024-05-22 21:04] VITALS: BP 128/74; PULSE 100; RESP 20; TEMP 36.7; O2SAT 99
[2024-05-22 21:42] LABS: Creatine Kinase 1358 U/L (34-171)
--- NOTE | 2024-05-22 23:21 | PD.EDADDENDU ---
Emergency Room Addendum Addendum Narrative: 2300: Care assumed from Ankush Carnes NP, the previous shift emergency physician. Past medical, surgical, social and family history reviewed. Vitals and home medications reviewed. Results and treatment plan discussed. I will assume the care of the patient at this time and will follow the patient, pending repeat CK and CMP. Please refer to the emergency department record for history and examination from initial visit. Repeat CMP at 0344 showed an improved Total Bilirubin at 1.8 (compared to 2.0), improved CK of 1140 (compared to 1977 and 1358), and improved Albumin of 4.1 (previously 5.6). 0535: Patient is medically clear and is pending psychiatric placement. 0600: Care signed out to Dr. Henriquez (emergency physician). Past medical, surgical, social and family history reviewed. Vitals and home medications reviewed. Results and treatment plan discussed. They will assume the care of the patient at this time and will follow the patient, pending psychiatric evaluation/placement.
[2024-05-23 04:25] LABS: Alanine Aminotransferase 89 U/L (10-49); Albumin, Serum 4.1 gm/dL (3.5-5.0); Albumin/Globulin Ratio 2.1 (1.2-2.2); Alkaline Phosphatase 64 U/L (46-116); Anion Gap 6 (7-16); Aspartate Amino Transferase 82 U/L (0-34); BUN/Creatinine Ratio 20 Ratio (12-20); Bilirubin,Total 1.8 mg/dL (0.3-1.2); Blood Urea Nitrogen 20 mg/dL (9-23); Calcium 8.5 mg/dL (8.3-10.6); Calcium (Corrected) 8.5 mg/dL (8.5-10.1); Carbon Dioxide 25.5 mMol/L (20.0-31.0); Chloride 108 mMol/L (98-107); Creatine Kinase 1140 U/L (34-171); Estimated Creatinine Clearance 96.4 mL/min (>60); Glucose 94 mg/dL (74-106); Osmolality,Calculated 280 (275-295); Potassium 4.1 mMol/L (3.4-5.1); Sodium 139 mMol/L (136-145); Total Protein 6.1 gm/dL (5.7-8.2); eGFR > 60 See Note
[2024-05-23] MEDS: SODIUM CHLORIDE 0.9% 1000 ML 1,000 ML 250 ML IV ×2 (04:32→08:10)
[2024-05-23 04:47] VITALS: BP 116/72; PULSE 94; RESP 18; O2SAT 97
--- NOTE | 2024-05-23 06:14 | PD.EDADDENDU ---
Emergency Room Addendum Addendum Narrative: 0600: Care assumed from Dr. Mike, the previous shift emergency physician. Past medical, surgical, social and family history reviewed. Vitals and home medications reviewed. I will assume the care of the patient at this time, pending psychiatric placement. Please refer to the emergency department record for history and examination from initial visit.? The patient was placed in ED observation care at 05/23/2024 at 0600 hours. The patient was placed in ED observation care because of undifferentiated decompensated behavioral health evaluation/ placement. The patients past medical history, social history, and family history were reviewed. The plan of care will include serial examinations. While in ED observation the patient will have access to water, food, and personal hygiene. If the patient takes home medication(s), they will be continued in ED observation. Physical exam by me shows patient under no acute distress at this time. 0845: Patient accepted to [facility]. ED observation care ended at 05/23/2024 at 0900 hours. Diagnoses: schizophrenia, bipolar disorder, methamphetamine abuse, rhabdomyolysis.
[2024-05-23 06:45] VITALS: BP 122/76; PULSE 87; RESP 18; TEMP 36.8; O2SAT 97
[2024-05-23 08:00] VITALS: BP 108/55; PULSE 94; RESP 19; TEMP 36.6; O2SAT 98
--- NOTE | 2024-05-23 08:09 | PC.CC ---
Ariella LUIS sent referral to LPS facilities. Provided information to Dr. Henriquez and router tender Diana.
--- NOTE | 2024-05-23 08:44 | PC.CC ---
Patient was accepted to [facility]. Patient was provided with information of accepting facility. Dr. Henriquez, industrial sewer Diana, and Bedside RN provided with discharge plan. ASW arranging transportation.
== END 2024-05-23 09:36 ==
PROVIDERS: Registered Nurse General Practice; Emergency Provider Emergency Medicine; PCP Emergency Medicine; Referring Provider Emergency Medicine
DX: Z00.8 Encounter for other general examination (principal); F20.9 Schizophrenia, unspecified; F31.9 Bipolar disorder, unspecified; M62.82 Rhabdomyolysis; F15.10 Other stimulant abuse, uncomplicated; Z75.1 Person awaiting admission to adequate facility elsewhere
CPT/HCPCS: 36415; 80053; 80307; 80320; 81001; 82550; 85025; 96127; 96361; 96374; 96375; 99285; J1200; J1630; J2060; J7030; G0480

== ENCOUNTER 2024-10-16 01:06 | Emergency (ER) | payer MEDICAID, SELFPAY ==
--- NOTE | 2024-10-16 01:14 | EDNOTE_ITS ---
ED Medical Clearance RME/HPI General Chief complaint: Medical Clearance Stated complaint: RESIDENTIAL CLEARANCE Arrival date/time: 10/16/24 01:06 RME / HPI RME / HPI Narrative: This section includes all my notes and documentations, including HPI, PE, and ED course. Alfonso Agrawal MD HPI: 34yo male BIB PPD presents to the ED for a medical clearance. Per PPD, patient was brought in due to his blood pressure and fast heart rate. Patient endorses having palpitations. Patient denies any chest pain, shortness of breath, nausea, vomiting or any other associated symptoms. Patient does admit to using methamphetamines. No other complaints reported. ROS: All negative except as documented in HPI. Physical Exam: General: Alert. Eyes: Conjunctivae and lids clear. PERRL. EOMI. High BP noted. ENT: No nasal congestion. Neck: Supple. Heart: Sinus tachycardia noted (160 bpm). Lungs: No respiratory distress. Good air movement. No rhonchi, wheezing, rales. Abdomen: Soft and nontender. Normal bowel sounds. No distension. No rebound or guarding. Back: No CVA tenderness. Skin: Warm and dry. Neuro: Alert. I reviewed all diagnostic test results. My interpretation of the EKG is sinus tachycardia with nonspecific ST-T changes. Blood tests are unremarkable except for WBC 15.4, Creatinine 1.8, BUN 34. UDS is positive for methamphetamines. At this point, diagnoses include methamphetamine intoxication. Treatment here included Clonidine, NS, and Metoprolol. BP and HR improved. Patient was released by police. Referral ordered for evaluation by our ED Building Materials Sales Attendant. Alfonso Agrawal MD Related Information Home Medications ?Medication ?Instructions ?Recorded ?Confirmed olanzapine 5 mg tablet 5 mg PO DAILY 03/13/2405/22 gabapentin 300 mg capsule 100 mg PO TID 05/22/2405/22 Allergies Allergy/AdvReac Type Severity Reaction Status Date / Time No Known Allergies Allergy Verified 05/22/24 16:27 Review of Systems Review of Systems Systems Reviewed: All systems reviewed, normal except as documented Past Medical History Past Medical History CARDIAC: Negative Congestive Heart Failure RESPIRATORY: Negative Chronic Obstructive Pulmonary Disease (COPD) GENITOURINARY: Negative Renal Disease ENDOCRINE: Negative Diabetes Mellitus Type 1 or Diabetes Mellitus Type 2 PSYCHO/SOCIAL: Positive Schizophrenia, Bipolar Disorder, Depression and Anxiety OTHER HISTORY: Negative Cancer Social History SMOKING STATUS: Never smoker ED Exam Narrative Physical exam: As noted in HPI. Course Quality Measures none Orders Category Date Time Status EKG (ED ONLY) *Do not use* NOW Care 10/16/24 01:39 Completed EKG (ED ONLY) *Do not use* NOW Care 10/16/24 02:10 Completed IV [Insert IV] NOW Care 10/16/24 02:00 Active In and Out Catheter X1 Care 10/16/24 04:13 Completed Referral Psych Eval Stat Cons 10/16/24 04:40 Active EKG (ED Only) Stat Exams 10/16/24 01:39 Ordered EKG (ED Only) Stat Exams 10/16/24 02:10 Ordered Acetaminophen Stat Lab 10/16/24 02:45 Completed Alcohol, Blood Medical Stat Lab 10/16/24 02:45 Completed BNP [B-Type Natriuretic Peptide] Stat Lab 10/16/24 01:56 Completed Bilirubin,Direct Stat Lab 10/16/24 02:45 Completed CBC Stat Lab 10/16/24 01:56 Completed CMP [Comprehensive Metabolic Panel] Stat Lab 10/16/24 02:45 Completed D-Dimer Stat Lab 10/16/24 01:56 Completed Drug Screen,Urine Stat Lab 10/16/24 04:05 Completed Free T4 (Free Thyroxine) Stat Lab 10/16/24 02:45 Completed Magnesium Stat Lab 10/16/24 02:45 Completed Salicylate Stat Lab 10/16/24 02:45 Completed TSH [Thyroid Stimulating Hormone] Stat Lab 10/16/24 02:45 Completed Troponin I Stat Lab 10/16/24 02:45 Completed Metoprolol Succinate Xl [Toprol Xl] Med 10/16/24 01:39 Discontinued 100 mg PO X1 ONE Metoprolol Succinate Xl [Toprol Xl] Med 10/16/24 02:10 Discontinued 100 mg PO X1 ONE Metoprolol Tartrate Inj [Lopressor Inj] Med 10/16/24 01:49 Discontinued 2.5 mg IVP X1 ONE Sodium Chloride 0.9% 1000 ml [Ns] 1,000 ml Med 10/16/24 02:27 Discontinued IV 999 mls/hr Sodium Chloride 0.9% 1000 ml [Ns] 1,000 ml Med 10/16/24 04:32 Discontinued IV 999 mls/hr cloNIDine HCL [Catapres] Med 10/16/24 01:39 Discontinued 0.2 mg PO X1 ONE cloNIDine HCL [Catapres] Med 10/16/24 02:10 Discontinued 0.2 mg PO X1 ONE cloNIDine HCL [Catapres] Med 10/16/24 03:35 Discontinued 0.3 mg PO X1 ONE Vital Signs Vital signs: Vital Signs Pulse Rate 160 H 10/16/24 01:38 Respiratory Rate 27 H 10/16/24 01:38 Blood Pressure 150/117 H 10/16/24 01:38 Pulse Oximetry (%) 86 L 10/16/24 01:38 Oxygen Delivery Method Room Air 10/16/24 01:38 Medical Clearance MDM Narrative MDM Narrative:: 34yo male BIB PPD presents to the ED for a medical clearance. Per PPD, patient was brought in due to his blood pressure and heart rate being too high. Patient endorses having palpitations. Patient denies any chest pain, shortness of breath, nausea, vomiting or any other associated symptoms. Patient does admit to using methamphetamines. No other complaints reported. Patient data External records reviewed:: [facility] previous records (Per chart review, patient was seen here on 05/22/24 for bipolar disorder.) Clinical information provided by:: patient and law enforcement Social determinants that could affect healthcare access:: substance use (uses methamphetamines) Patient has the following chronic illnesses:: schizophrenia, bipolar disorder How is presenting disease/condition affected by chronic disease/condition?: caused by Evaluation data The following diagnostics were reviewed and interpreted by me:: lab results and EKG tracing(s) (My interpretation of the EKG is: Sinus tachycardia (160 bpm) with nonspecific ST-T changes. Alfonso Agrawal MD) Lab and/or radiology exams considered but not ordered:: none Interpretation Summary: I reviewed all diagnostic test results. My interpretation of the EKG is sinus tachycardia with nonspecific ST-T changes. Blood tests are unremarkable except for WBC 15.4, Creatinine 1.8, BUN 34. UDS is positive for methamphetamines. Medications / Prescriptions Medications or Prescriptions considered but not ordered:: none Medication administrations:: Medication Administration History Discontinued Medications Clonidine (Clonidine Hcl 0.1 Mg Tablet) 0.2 mg PO X1 ONE Stop: 10/16/24 01:40 Last Admin: 10/16/24 02:02 Dose: Not Given Documented By: PEPE Non-Admin Reason: Cancelled by Provider Clonidine (Clonidine Hcl 0.1 Mg Tablet) 0.2 mg PO X1 ONE Stop: 10/16/24 02:11 Last Admin: 10/16/24 03:20 Dose: Not Given Documented By: Non-Admin Reason: Cancelled by Provider Clonidine (Clonidine Hcl 0.1 Mg Tablet) 0.3 mg PO X1 ONE Stop: 10/16/24 03:36 Last Admin: 10/16/24 03:55 Dose: 0.3 mg Documented By: DC Sodium Chloride (Ns) 1,000 mls @ 999 mls/hr IV .Q1H1M ONE Stop: 10/16/24 03:27 Last Admin: 10/16/24 03:18 Dose: 999 mls/hr Documented By: Sodium Chloride (Ns) 1,000 mls @ 999 mls/hr IV .Q1H1M ONE Stop: 10/16/24 05:32 Metoprolol Succinate (Metoprolol Succinate Xl 25 Mg Tabcr) 100 mg PO X1 ONE Stop: 10/16/24 01:40 Last Admin: 10/16/24 02:03 Dose: Not Given Documented By: PEPE Non-Admin Reason: Cancelled by Provider Metoprolol Succinate (Metoprolol Succinate Xl 25 Mg Tabcr) 100 mg PO X1 ONE Stop: 10/16/24 02:11 Last Admin: 10/16/24 03:09 Dose: 100 mg Documented By: Metoprolol Tartrate (Metoprolol Tartrate Inj 1 Mg/Ml Amp 5 Ml) 2.5 mg IVP X1 ONE Stop: 10/16/24 01:50 Last Admin: 10/16/24 02:01 Dose: 2.5 mg Documented By: DC Clonidine, NS, Metoprolol Consultations Consultation(s) initiated? (list below): No Diagnosis Medical Clearance Differential Diagnosis: other (Alcohol tox occasion, drug intoxication, MT, PE, electrolyte abnormalities) Most likely diagnosis given after review of the tests above:: Methamphetamine tox occasion Admission Indicated Admission indicated?: not indicated Explain why admission is indicated or not indicated:: Pending evaluation by our ED specialist wound care. Admission Request Was there a request for admission?: No Disposition Plan Disposition Plan: other (specify) (Care of the patient was transferred to Dr. Henriquez. ) Discharge Plan Prescriptions/Referrals Prescriptions/Med Rec: No Action olanzapine 5 mg tablet 5 mg PO DAILY Patient Comments: TAKE 1 TABLET BY MOUTH EVERY DAY FOR 30 DAYS gabapentin 300 mg capsule 100 mg PO TID Referrals: No Primary/Family,Physician [Primary Care Provider] - In 1 week Problem List Clinical Impression: Methamphetamine intoxication Patient/Caregiver Discharge Instructions Print Language: Urdu
[2024-10-16 01:16] VITALS: BMI 27.4
[2024-10-16 01:38] VITALS: BP 150/117; PULSE 160; RESP 27; O2SAT 86
[2024-10-16 02:01] VITALS: BP 150/117; PULSE 153
[2024-10-16] MEDS: METOPROLOL TARTRATE INJ 1 MG/ML AMP 5 ML 2.5 MG IVP (02:01)
[2024-10-16 02:26] LABS: Basophils # (Auto) 0.1 Thou/mm3 (0.0-0.2); Basophils % (Auto) 1 % (0-2.5); Eosinophils % (Auto) 0 % (0-10); Hematocrit 52.5 % (41.0-53.0); Hemoglobin 18.5 g/dL (13.5-16.0); Immature Granulocytes % (Auto) 0 % (0-0); Immature Granulocytes Auto 0.06 Thou/mm3 (0.00-0.00); Lymphocytes # (Auto) 1.5 Thou/mm3 (1.0-4.8); Lymphocytes % (Auto) 10 % (10-50); Mean Corpuscular HGB Conc 35.2 g/dl (31.0-37.0); Mean Corpuscular Hemoglobin 29.7 pg (25.0-35.0); Mean Corpuscular Volume 84 fL (80-100); Monocytes # (Auto) 1.1 Thou/mm3 (0.0-0.8); Monocytes % (Auto) 7 % (0-12); Neutrophils # (Auto) 12.6 Thou/mm3 (1.8-7.7); Neutrophils % (Auto) 82 % (37-80); Nucleated Red Blood Cell % 0 /100 WBC (0); Platelet Count 303 Thou/mm3 (140-440); Red Blood Count 6.22 Miln/mm3 (4.50-5.90); White Blood Count 15.4 Thou/mm3 (3.8-10.6)
[2024-10-16 02:44] LABS: B-Type Natriuretic Peptide < 20 pg/mL (0-100)
[2024-10-16 03:03] LABS: D-Dimer 524 ng/mL (<600)
[2024-10-16 03:09] VITALS: BP 145/109; PULSE 136
[2024-10-16] MEDS: METOPROLOL SUCCINATE XL 25 MG TABCR 100 MG PO (03:09)
[2024-10-16 03:16] LABS: Acetaminophen < 2.0 mcg/mL (10.0-20.0); Alanine Aminotransferase 66 U/L (10-49); Albumin, Serum 5.6 gm/dL (3.5-5.0); Albumin/Globulin Ratio 1.6 (1.2-2.2); Alcohol, Blood Medical < 3.0 mg/dL (0-10.0); Alkaline Phosphatase 82 U/L (46-116); Anion Gap 15 (7-16); Aspartate Amino Transferase 134 U/L (0-34); BUN/Creatinine Ratio 19 Ratio (12-20); Bilirubin,Direct 0.5 mg/dL (0.0-0.3); Bilirubin,Total 1.7 mg/dL (0.3-1.2); Blood Urea Nitrogen 34 mg/dL (9-23); Carbon Dioxide 23.9 mMol/L (20.0-31.0); Chloride 101 mMol/L (98-107); Creatinine (Component) 1.8 mg/dL (0.6-1.3); Estimated Creatinine Clearance 55.5 mL/min (>60); Globulin 3.4 gm/dL (2.3-3.5); Glucose 106 mg/dL (74-106); Magnesium 2.6 mg/dL (1.6-2.6); Osmolality,Calculated 287 (275-295); Potassium 3.9 mMol/L (3.4-5.1); Salicylate < 3.0 mg/dL; Sodium 140 mMol/L (136-145); Troponin I 0.036 ng/mL (0.0-0.045); eGFR 49 See Note
[2024-10-16 03:17] LABS: Free T4 (Free Thyroxine) 1.64 ng/dL (0.89-1.76)
[2024-10-16] MEDS: SODIUM CHLORIDE 0.9% 1000 ML 1,000 ML 999 ML IV (03:18)
[2024-10-16 03:55] VITALS: BP 163/123; PULSE 127
[2024-10-16] MEDS: cloNIDine HCL 0.1 MG TABLET 0.3 MG PO (03:55)
[2024-10-16 04:15] VITALS: BP 116/96; PULSE 121; RESP 22; O2SAT 94
[2024-10-16 04:33] LABS: Amphetamine/Methamp Scrn,U Positive (Negative); Barbiturate Screen,Urine Negative (Negative); Benzodiazepines Screen,Urine Negative (Negative); Benzoylecgonine Screen, Ur Negative (Negative); Fentanyl Screen,Urine Negative (Negative); Opiate Screen,Urine Negative (Negative); THC Screen,Urine Negative (Negative)
--- NOTE | 2024-10-16 06:17 | PD.EDADDENDU ---
Emergency Room Addendum Addendum Narrative: 0600: Care assumed from Dr. Agrawal, the previous shift emergency physician. Past medical, surgical, social and family history reviewed. Vitals and home medications reviewed. I will assume the care of the patient at this time. Please refer to the emergency department record for history and examination from initial visit.? Physical exam by me shows patient under no acute distress at this time. 0628: Patient eloped. Diagnosis: Methamphetamine intoxication
== END 2024-10-16 06:30 | disposition left against medical advice (07) ==
LOC: SERX 01:29
PROVIDERS: Emergency Provider Emergency Medicine
DX: Z02.89 Encounter for other administrative examinations (principal); F15.129 Other stimulant abuse with intoxication, unspecified; R00.2 Palpitations
CPT/HCPCS: 51701; 36415; 80053; 80307; 80320; 80329; 82248; 83735; 83880; 84439; 84443; 84484; 85025; 85379; 93005; 96361; 96374; 99284; J3490; J7030; A9270; G0480

== ENCOUNTER 2024-11-30 00:42 | Emergency (ER) | payer MEDICAID, SELFPAY ==
[2024-11-30] MEDS: LORazepam 2 MG/ML VIAL IM (00:56)
[2024-11-30] MEDS: HALOPERIDOL LACT INJ 5 MG/ML VIAL 10 MG IM (00:56)
--- NOTE | 2024-11-30 01:02 | EKG_ITS ---
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
--- NOTE | 2024-11-30 01:03 | PD.EDPSYCH ---
ED Psych RME/HPI General Chief Complaint: Psychiatric Symptoms Stated Complaint: ABNORMAL BEHAVIOR Time Seen by Provider: 11/30/24 01:02 Arrival date/time: 11/30/24 00:42 RME / HPI RME / HPI Narrative: Dr. Valdez?s Main ED Evaluation: 34yo male BIBA after they were contacted regarding the patient being nonsensical and extremely agitated, requiring restraints en route. History obtained by EMS as the patient is unable to provide any due to his AMS. Unknown history. Related Data Home Medications ?Medication ?Instructions ?Recorded ?Confirmed olanzapine 5 mg tablet 5 mg PO DAILY 03/13/24 05/22/24 gabapentin 300 mg capsule 100 mg PO TID 05/22/24 05/22/24 Allergies Allergy/AdvReac Type Severity Reaction Status Date / Time No Known Allergies Allergy Verified 05/22/24 16:27 Review of Systems Review of Systems ROS Unobtainable: unobtainable due to mental status Past Medical History Past Medical History CARDIAC: Negative Congestive Heart Failure RESPIRATORY: Negative Chronic Obstructive Pulmonary Disease (COPD) GENITOURINARY: Negative Renal Disease ENDOCRINE: Negative Diabetes Mellitus Type 1 or Diabetes Mellitus Type 2 PSYCHO/SOCIAL: Positive Schizophrenia, Bipolar Disorder, Depression and Anxiety OTHER HISTORY: Negative Cancer Social History SMOKING STATUS: Never smoker ED Exam Narrative Physical exam: GENERAL APPEARANCE: alert, marked hyperactive psychomotor, repetitive/tangential and unable to follow simple commands, appears diaphoretic, well-developed, well-nourished, no acute distress VITALS: All vitals were reviewed and the pulse ox is 95% on room air, which is normal according to my interpretation. HEENT: Normocephalic, atraumatic; pupils equal, round, reactive to light; EOMI; mucous membranes pink, moist; oropharynx clear NECK: Supple LUNGS: CTABL; no wheezes, no rales, no rhonchi HEART: Tachycardic, regular rhythm; normal S1, S2; no murmurs ABDOMEN: non distended; normal BS; soft, no tenderness, no guarding, no rebound; no masses, no organomegaly, no hernia BACK: no CVA tenderness EXTREMITIES: atraumatic; no edema NEUROLOGIC: awake; no focal sensory or motor deficits PSYCHIATRIC: unable to fully assess SKIN: warm, diaphoretic, normal color; no rashes Course Quality Measures none Orders Category Date Time Status 4 HR Behavioral Restraints Q2HR Care 11/30/24 01:03 Active Bedside Blood Glucose Q6HR Care 11/30/24 01:02 Active Wash And Greaser NOW Care 11/30/24 01:02 Active Continuous Pulse Oximetry NOW Care 11/30/24 01:02 Active EKG (ED ONLY) *Do not use* NOW Care 11/30/24 01:03 Completed Insert IV NOW Care 11/30/24 01:03 Active NPO NOW Care 11/30/24 01:[address] head/brain wo con Stat Exams 11/30/24 01:33 Taken EKG (ED Only) Stat Exams 11/30/24 01:02 Draft Alcohol, Blood Medical Stat Lab 11/30/24 01:32 Completed CBC Stat Lab 11/30/24 01:32 Completed CK [Creatine Kinase] Stat Lab 11/30/24 01:32 Completed Comprehensive Metabolic Panel Stat Lab 11/30/24 01:32 Completed Drug Screen,Urine Stat Lab 11/30/24 05:30 Completed Magnesium Stat Lab 11/30/24 01:32 Completed Urinalysis Stat Lab 11/30/24 05:30 Received DiphenhydrAMINE INJ [Benadryl Inj] Med 11/30/24 00:43 Discontinued 50 mg IM X1 ONE Haloperidol Lactate [Haldol Inj] Med 11/30/24 00:45 Discontinued 10 mg IM X1 ONE Haloperidol Lactate [Haldol Inj] Med 11/30/24 00:43 Discontinued 5 mg IM X1 ONE LORazepam [Ativan Inj] Med 11/30/24 00:43 Discontinued 2 mg IM X1 ONE Sodium Chloride 0.9% 1000 ml [Ns] 1,000 ml Med 11/30/24 01:02 Discontinued IV 1,000 mls/hr Sodium Chloride 0.9% 1000 ml [Ns] 1,000 ml Med 11/30/24 03:22 Discontinued IV 999 mls/hr Sodium Chloride 0.9% 1000 ml [Ns] 1,000 ml Med 11/30/24 05:44 Active IV 999 mls/hr Vital Signs Vital signs: Vital Signs Temperature 98 F 11/30/24 01:32 Pulse Rate 131 H 11/30/24 01:32 Respiratory Rate 22 H 11/30/24 01:32 Blood Pressure 131/79 H 11/30/24 01:32 Pulse Oximetry (%) 95 11/30/24 01:32 Oxygen Delivery Method Room Air 11/30/24 01:32 Psych MDM Narrative MDM Narrative:: Scribe Attestation: 11/30/24 - Corry Carver am scribing for and in the presence of Dr. Valdze. 34yo male BIBA after they were contacted regarding the patient being nonsensical and extremely agitated, requiring restraints en route. History obtained by EMS as the patient is unable to provide any due to his AMS. Please see PE findings. Patient required restraints en route per EMS and arrives in severely agitated state. Labs remarkable for WBC 11, Hgb 15, and normal platelets. CMP notable for elevated Creatinine 1.8 (baseline), CO2 slightly low at 19.5 with mildly elevated anion gap of 18, magnesium low normal at 1.9, CK 1797. Ethanol undetected. Tox screen pending. Patient placed on residential monitor, was aggressively hydrated, and underwent rapid tranquilization with significant reduction in psychomotor activity. Patient's sensorium has improved, although CK is elevated. Consulted hospitalist for possible OBS bed to prevent rhabdomyolysis. Given patient's hx of psychiatric disorder, will await tox screen for confirmation of methamphetamine-induced psychosis. Morning physician to follow at 0600. Patient data External records reviewed:: [facility] previous records (Per chart review, patient was seen here on 10/16/24 for methamphetamine intoxication.) Clinical information provided by:: patient Social determinants that could affect healthcare access:: substance use Patient has the following chronic illnesses:: schizophrenia, bipolar, depression How is presenting disease/condition affected by chronic disease/condition?: exacerbated by Evaluation data The following diagnostics were reviewed and interpreted by me:: lab results, radiology exam(s) and EKG tracing(s) Lab and/or radiology exams considered but not ordered:: none Interpretation Summary: EKG done at 0136, sinus tachycardia, rate of 120, no acute pathological ST elevation, no ectopy, normal intervals, normal axis, according to my interpretation. ------ Telerad Preliminary Report Draft Patient: ISAURA LAM [facility] Record#: [id number] Birthdate: 1990 Age/Sex: 34 / M Location: [facility] Attending Dr: Ordering Physician: Date of Service: Procedure(s): Accession Number(s): cc: ~ CT scan of the head without intravenous contrast (axial sections with sagittal and coronal reformats). November 30, 2024 0210 hours Clinical History: altered mental status Compared with the prior study dated November 26, 2020. Findings: No evidence of intracranial hemorrhage, mass effect or midline shift. The ventricles and CSF spaces are unremarkable. The calvarium is unremarkable. The mastoid air cells and the visualized paranasal sinuses are clear. Impression: No evidence of intracranial hemorrhage, mass effect or midline shift. Report Electronically Signed By: Michael Zepeda 11/30/2024 2:45:17 AM Medications / Prescriptions Medications or Prescriptions considered but not ordered:: none Medication administrations:: Medication Administration History Sodium Chloride (Ns) 1,000 mls @ 999 mls/hr IV .Q1H1M ONE Stop: 11/30/24 06:44 Last Admin: 11/30/24 05:48 Dose: 999 mls/hr Documented By: BRANDON Discontinued Medications Diphenhydramine HCl (Diphenhydramine Inj 50 Mg/Ml Vial) 50 mg IM X1 ONE Stop: 11/30/24 00:44 Last Admin: 11/30/24 00:56 Dose: 50 mg Documented By: IRMA Haloperidol Lactate (Haloperidol Lact Inj 5 Mg/Ml Vial) 5 mg IM X1 ONE Stop: 11/30/24 00:44 Last Admin: 11/30/24 00:56 Dose: Not Given Documented By: IRMA Non-Admin Reason: Cancelled by Provider Haloperidol Lactate (Haloperidol Lact Inj 5 Mg/Ml Vial) 10 mg IM X1 ONE Stop: 11/30/24 00:46 Last Admin: 11/30/24 00:56 Dose: 10 mg Documented By: IRMA Sodium Chloride (Ns) 1,000 mls @ 1,000 mls/hr IV .Q1H ONE Stop: 11/30/24 02:01 Last Infusion: 11/30/24 02:24 Dose: Infused Documented By: Admin: 11/30/24 01:20 Dose: 1,000 mls/hr Documented By: IRMA Sodium Chloride (Ns) 1,000 mls @ 999 mls/hr IV .Q1H1M ONE Stop: 11/30/24 04:22 Last Infusion: 11/30/24 05:08 Dose: Infused Documented By: Admin: 11/30/24 03:43 Dose: 999 mls/hr Documented By: BRANDON Lorazepam (Lorazepam 2 Mg/Ml Vial) 2 mg IM X1 ONE Stop: 11/30/24 00:44 Last Admin: 11/30/24 00:56 Dose: 2 mg Documented By: IRMA see above Consultations Consultation(s) initiated? (list below): Yes Diagnosis Psych Differential Diagnosis: acute psychosis, chronic schizophrenia, drug-induced psychotic disorder and other (dehydration, electrolyte abnormality) Most likely diagnosis given after review of the tests above:: see clinical impression below Admission Indicated Admission indicated?: not indicated Admission Request Was there a request for admission?: No Disposition Plan Disposition Plan: other (specify) (Signed out to Dr. Mello at 0600 pending tox screen and final disposition.) Discharge Plan Plan Patient Disposition: Admit Acute Care w/in Hospital Prescriptions/Referrals Prescriptions/Med Rec: No Action olanzapine 5 mg tablet 5 mg PO DAILY Patient Comments: TAKE 1 TABLET BY MOUTH EVERY DAY FOR 30 DAYS gabapentin 300 mg capsule 100 mg PO TID Referrals: No Primary/Family,Physician [Primary Care Provider] - In 1 week Problem List Clinical Impression: Altered mental status, Psychosis, Chronic renal insufficiency, Elevated CK, Dehydration Patient/Caregiver Discharge Instructions Print Language: Serbian Stand Alone Forms: Muna Award Info., Patient Portal Info Letter
[2024-11-30] MEDS: SODIUM CHLORIDE 0.9% 1000 ML 1,000 ML IV (01:20)
[2024-11-30 01:32] VITALS: BP 131/79; PULSE 131; RESP 22; TEMP 36.6; O2SAT 95
--- NOTE | 2024-11-30 01:33 | XR_ITS ---
Examination: CT brain head without contrast. 2-D sagittal coronal reconstructions Date and time of exam:November 30, 2024 0210 hours INDICATIONS: Onset altered mental status today CTDI: vol (mGy):49.8 DLP: (mGycm):1040 Technique: Multiple CT axial sections of the brain have been obtained, 5 mm slice thickness. Contrast has not been administered. 2-D sagittal, coronal reconstructions have been obtained Low dose protocols were performed. One or more of the following dose reduction techniques were used; automated exposure control, adjustment of the mA and/or KV according to patient size, use of iterative reconstruction technique. Findings: No significant ventricular enlargement. Intra-axial or extra-axial hemorrhage density is not seen. No mass effect or midline shift Basal cisterns are not remarkable. Fourth ventricle is midline. Cranial vault intact. Impression: Negative for acute hemorrhage, mass effect or midline shift
[2024-11-30 01:42] LABS: Basophils # (Auto) 0.1 Thou/mm3 (0.0-0.2); Basophils % (Auto) 1 % (0-2.5); Eosinophils # (Auto) 0.0 Thou/mm3 (0.0-0.5); Eosinophils % (Auto) 0 % (0-10); Hematocrit 43.8 % (41.0-53.0); Hemoglobin 15.8 g/dL (13.5-16.0); Immature Granulocytes Auto 0.04 Thou/mm3 (0.00-0.00); Lymphocytes # (Auto) 1.4 Thou/mm3 (1.0-4.8); Lymphocytes % (Auto) 13 % (10-50); Mean Corpuscular HGB Conc 36.1 g/dl (31.0-37.0); Mean Corpuscular Hemoglobin 30.2 pg (25.0-35.0); Mean Corpuscular Volume 84 fL (80-100); Monocytes # (Auto) 1.1 Thou/mm3 (0.0-0.8); Monocytes % (Auto) 10 % (0-12); Neutrophils # (Auto) 8.4 Thou/mm3 (1.8-7.7); Neutrophils % (Auto) 76 % (37-80); Nucleated Red Blood Cell # 0.00 Thou/mm3 (0.00-0.00); Nucleated Red Blood Cell % 0 /100 WBC (0); Platelet Count 259 Thou/mm3 (140-440); RDW Standard Deviation 40.6 fL (35.1-43.9); Red Blood Count 5.24 Miln/mm3 (4.50-5.90); White Blood Count 11.0 Thou/mm3 (3.8-10.6)
[2024-11-30 02:12] LABS: Alanine Aminotransferase 73 U/L (10-49); Albumin, Serum 5.1 gm/dL (3.5-5.0); Albumin/Globulin Ratio 1.8 (1.2-2.2); Alcohol, Blood Medical < 3.0 mg/dL (0-10.0); Alkaline Phosphatase 80 U/L (46-116); Anion Gap 18 (7-16); Aspartate Amino Transferase 85 U/L (0-34); BUN/Creatinine Ratio 19 Ratio (12-20); Bilirubin,Total 2.0 mg/dL (0.3-1.2); Blood Urea Nitrogen 35 mg/dL (9-23); Calcium 9.6 mg/dL (8.3-10.6); Calcium (Corrected) 9.6 mg/dL (8.5-10.1); Carbon Dioxide 19.5 mMol/L (20.0-31.0); Chloride 103 mMol/L (98-107); Creatinine (Component) 1.8 mg/dL (0.6-1.3); Globulin 2.9 gm/dL (2.3-3.5); Glucose 102 mg/dL (74-106); Magnesium 1.9 mg/dL (1.6-2.6); Osmolality,Calculated 287 (275-295); Potassium 3.6 mMol/L (3.4-5.1); Sodium 140 mMol/L (136-145); Total Protein 8.0 gm/dL (5.7-8.2); eGFR 49 See Note
[2024-11-30 02:37] LABS: Creatine Kinase 1797 U/L (34-171)
--- NOTE | 2024-11-30 02:46 | PRELIM_ITS ---
CT scan of the head without intravenous contrast (axial sections with sagittal and coronal reformats). November 30, 2024 0210 hours Clinical History: altered mental status Compared with the prior study dated November 26, 2020. Findings: No evidence of intracranial hemorrhage, mass effect or midline shift. The ventricles and CSF spaces are unremarkable. The calvarium is unremarkable. The mastoid air cells and the visualized paranasal sinuses are clear. Impression: No evidence of intracranial hemorrhage, mass effect or midline shift. Report Electronically Signed By: Michael Zepeda 11/30/2024 2:45:17 AM [EST]
--- NOTE | 2024-11-30 03:00 | PC.NURSE ---
Per MD Riley vitals when awake to prevent agitation
[2024-11-30] MEDS: SODIUM CHLORIDE 0.9% 1000 ML 1,000 ML 999 ML IV ×2 (03:43→05:48)
[2024-11-30 03:50] VITALS: BMI 24.9
[2024-11-30 05:47] LABS: Collection Type, Urine Clean Catch
[2024-11-30 05:52] LABS: Bilirubin,Urine Negative (Negative); Blood,Urine Negative (Negative); Clarity,Urine Clear (Clear/Hazy); Color,Urine Yellow (Lt Yel-Yel); Glucose, Urine Negative (Negative); Hyaline Casts,Urine 2 /hpf (0-1); Ketones,Urine 3+ (Negative); Leukocyte Esterase,Urine Negative (Negative); Nitrite,Urine Negative (Negative); PH,Urine 5.5 (5.0-7.0); Protein,Urine 1+ (Neg - Trace); RBC,Urine 5 /hpf (0-3); Specific Gravity,Urine 1.036 (1.001-1.035); Squamous Epithelial Cell,Urine < 1 /hpf (0-5); Urobilinogen,Urine Negative mg/dL (0.0-1.0); WBC,Urine 3 /hpf (0-5)
[2024-11-30 05:58] LABS: Amphetamine/Methamp Scrn,U Positive (Negative); Barbiturate Screen,Urine Negative (Negative); Benzodiazepines Screen,Urine Negative (Negative); Benzoylecgonine Screen, Ur Negative (Negative); Fentanyl Screen,Urine Negative (Negative); Opiate Screen,Urine Negative (Negative); THC Screen,Urine Negative (Negative)
--- NOTE | 2024-11-30 06:31 | EDNOTE_ITS ---
Emergency Room Addendum Addendum Narrative: 0600: Care assumed from Dr. Canas, the previous shift emergency physician. Past medical, surgical, social and family history reviewed. Vitals and home medications reviewed. I will assume the care of the patient at this time, pending remainder of labs. Please refer to the emergency department record for history and examination from initial visit.? Physical exam by me shows patient under no acute distress at this time. 1308: Patient is sobered up. No psychosis. He is alert and oriented x4. 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 Results Objective Laboratory: Laboratory Last Values WBC 11.0 Thou/mm3 (3.8-10.6) H 11/30/24 01:32 RBC 5.24 Miln/mm3 (4.50-5.90) 11/30/24 01:32 Hgb 15.8 g/dL (13.5-16.0) 11/30/24 01:32 Hct 43.8 % (41.0-53.0) 11/30/24 01:32 MCV 84 fL (80-100) 11/30/24 01:32 MCH 30.2 pg (25.0-35.0) 11/30/24 01:32 MCHC 36.1 g/dl (31.0-37.0) 11/30/24 01:32 RDW Std Deviation 40.6 fL (35.1-43.9) 11/30/24 01:32 Plt Count 259 Thou/mm3 (140-440) 11/30/24 01:32 Neut % (Auto) 76 % (37-80) 11/30/24 01:32 Lymph % (Auto) 13 % (10-50) 11/30/24 01:32 [place] % (Auto) 10 % (0-12) 11/30/24 01:32 Eos % (Auto) 0 % (0-10) 11/30/24 01:32 Baso % (Auto) 1 % (0-2.5) 11/30/24 01:32 Neut # (Auto) 8.4 Thou/mm3 (1.8-7.7) H 11/30/24 01:32 Lymph # (Auto) 1.4 Thou/mm3 (1.0-4.8) 11/30/24 01:32 [place] # (Auto) 1.1 Thou/mm3 (0.0-0.8) H 11/30/24 01:32 Eos # (Auto) 0.0 Thou/mm3 (0.0-0.5) 11/30/24 01:32 Baso # (Auto) 0.1 Thou/mm3 (0.0-0.2) 11/30/24 01:32 Immature Gran # (Auto) 0.04 Thou/mm3 (0.00-0.00) H 11/30/24 01:32 Absolute Nucleated RBC 0.00 Thou/mm3 (0.00-0.00) 11/30/24 01:32 Immature Gran % 0 % (0-0) 11/30/24 01:32 Nucleated RBC % 0 /100 WBC (0) 11/30/24 01:32 Sodium 140 mMol/L (136-145) 11/30/24 01:32 Potassium 3.6 mMol/L (3.4-5.1) 11/30/24 01:32 Chloride 103 mMol/L (98-107) 11/30/24 01:32 Carbon Dioxide 19.5 mMol/L (20.0-31.0) L 11/30/24 01:32 Anion Gap 18 (7-16) H 11/30/24 01:32 BUN 35 mg/dL (9-23) H 11/30/24 01:32 Creatinine 1.8 mg/dL (0.6-1.3) H 11/30/24 01:32 Estim Creat Clear Calc Not Performed. 11/30/24 01:32 eGFR 49 See Note (60-) L 11/30/24 01:32 BUN/Creatinine Ratio 19 Ratio (12-20) 11/30/24 01:32 Glucose 102 mg/dL (74-106) 11/30/24 01:32 Calculated Osmolality 287 (275-295) 11/30/24 01:32 Calcium 9.6 mg/dL (8.3-10.6) 11/30/24 01:32 Corrected Calcium 9.6 mg/dL (8.5-10.1) 11/30/24 01:32 Magnesium 1.9 mg/dL (1.6-2.6) 11/30/24 01:32 Total Bilirubin 2.0 mg/dL (0.3-1.2) H 11/30/24 01:32 AST 85 U/L (0-34) H 11/30/24 01:32 ALT 73 U/L (10-49) H 11/30/24 01:32 Alkaline Phosphatase 80 U/L (46-116) 11/30/24 01:32 Total Creatine Kinase 1797 U/L (34-171) H 11/30/24 01:32 Total Protein 8.0 gm/dL (5.7-8.2) 11/30/24 01:32 Albumin 5.1 gm/dL (3.5-5.0) H 11/30/24 01:32 Globulin 2.9 gm/dL (2.3-3.5) 11/30/24 01:32 Albumin/Globulin Ratio 1.8 (1.2-2.2) 11/30/24 01:32 Ur Collection Type Clean Catch 11/30/24 05:30 Urine Color Yellow (Lt Yel-Yel) 11/30/24 05:30 Urine Clarity Clear (Clear/Hazy) 11/30/24 05:30 Urine pH 5.5 (5.0-7.0) 11/30/24 05:30 Ur Specific Sharples 1.036 (1.001-1.035) H 11/30/24 05:30 Urine Protein 1+ (Neg - Trace) A 11/30/24 05:30 Urine Glucose (UA) Negative (Negative) 11/30/24 05:30 Urine Ketones 3+ (Negative) A 11/30/24 05:30 Urine Blood Negative (Negative) 11/30/24 05:30 Urine Nitrite Negative (Negative) 11/30/24 05:30 Urine Bilirubin Negative (Negative) 11/30/24 05:30 Urine Urobilinogen (Auto) Negative mg/dL (0.0-1.0) 11/30/24 05:30 Ur Leukocyte Esterase Negative (Negative) 11/30/24 05:30 Urine RBC 5 /hpf (0-3) H 11/30/24 05:30 Urine WBC 3 /hpf (0-5) 11/30/24 05:30 Ur Squamous Epith Cells < 1 /hpf (0-5) 11/30/24 05:30 Urine Bacteria None (None) 11/30/24 05:30 Hyaline Casts 2 /hpf (0-1) H 11/30/24 05:30 Urine Opiates Screen Negative (Negative) 11/30/24 05:30 Urine Fentanyl Screen Negative (Negative) 11/30/24 05:30 Ur Barbiturates Screen Negative (Negative) 11/30/24 05:30 U Amphetamin/Meth Scrn Positive (Negative) A 11/30/24 05:30 U Benzodiazepines Scrn Negative (Negative) 11/30/24 05:30 U Cocaine Metab Screen Negative (Negative) 11/30/24 05:30 U Marijuana (THC) Screen Negative (Negative) 11/30/24 05:30 Ethyl Alcohol < 3.0 mg/dL (0-10.0) 11/30/24 01:32 Imaging: Procedure(s): CT head/brain wo con Accession Number(s): [id number] cc: Bart Jaramillo DO; Martínez Guevara MD; NO PRIMARY/FAMILY,PHYSICIAN~ Examination: CT brain head without contrast. 2-D sagittal coronal reconstructions Date and time of exam:November 30, 2024 0210 hours INDICATIONS: Onset altered mental status today CTDI: vol (mGy):49.8 DLP: (mGycm):1040 Technique: Multiple CT axial sections of the brain have been obtained, 5 mm slice thickness. Contrast has not been administered. 2-D sagittal, coronal reconstructions have been obtained Low dose protocols were performed. One or more of the following dose reduction techniques were used; automated exposure control, adjustment of the mA and/or KV according to patient size, use of iterative reconstruction technique. Findings: No significant ventricular enlargement. Intra-axial or extra-axial hemorrhage density is not seen. No mass effect or midline shift Basal cisterns are not remarkable. Fourth ventricle is midline. Cranial vault intact. Impression: Negative for acute hemorrhage, mass effect or midline shift Dictated By: Martínez Guevara MD
[2024-11-30 07:29] VITALS: BP 112/64; PULSE 102; RESP 16; TEMP 36.4; O2SAT 95
[2024-11-30 09:39] VITALS: BP 109/66; PULSE 100; RESP 18; O2SAT 97
[2024-11-30 12:20] VITALS: BP 120/61; PULSE 98; RESP 17; TEMP 36.6; O2SAT 98
[2024-11-30 14:04] VITALS: BP 126/83; PULSE 107; RESP 17; TEMP 36.6; O2SAT 96
[2024-11-30 14:09] VITALS: BP 126/83; PULSE 107; RESP 17; TEMP 36.6; O2SAT 96
== END 2024-11-30 14:09 | disposition home or self-care (01) ==
PROVIDERS: Emergency Provider Emergency Medicine
DX: N18.9 Chronic kidney disease, unspecified (principal); E86.0 Dehydration; F15.959 Other stimulant use, unspecified with stimulant-induced psychotic disorder, unspecified; R41.82 Altered mental status, unspecified; R74.8 Abnormal levels of other serum enzymes; R00.0 Tachycardia, unspecified; F20.9 Schizophrenia, unspecified; F31.9 Bipolar disorder, unspecified; Z78.1 Physical restraint status
CPT/HCPCS: 36415; 70450; 80053; 80307; 80320; 81001; 82550; 83735; 85025; 93005; 96127; 96360; 96361; 96372; 99284; J1200; J1630; J2060; J7030; G0480

== ENCOUNTER 2025-01-02 14:01 | Emergency (ER) | payer MEDICAID, SELFPAY ==
[2025-01-02 14:06] VITALS: BP 150/90; PULSE 139; RESP 20; TEMP 36.9; O2SAT 96; BMI 29.0
--- NOTE | 2025-01-02 14:21 | PD.EDADULT ---
ED General RME/HPI General Chief complaint: Medical Clearance Stated complaint: FDC CHECK Time Seen by Provider: 01/02/25 14:20 Arrival date/time: 01/02/25 14:01 CC: Medical clearance patient is a heart rate of 130-140, PD reports finding a crack pipe with him, the patient is awake alert oriented denies any physical pain denies any medicines or allergies. Related Data Home Medications ?Medication ?Instructions ?Recorded ?Confirmed olanzapine 5 mg tablet 5 mg PO DAILY 03/13/24 05/22/24 gabapentin 300 mg capsule 100 mg PO TID 05/22/24 05/22/24 Allergies Allergy/AdvReac Type Severity Reaction Status Date / Time No Known Allergies Allergy Verified 05/22/24 16:27 Review of Systems Review of Systems Narrative Review of Systems: GEN: No fever, no chills, no weight loss EYES: No discharge, no visual changes, no pain HEENT: No ear pain, no congestion, no sore throat PULM: No shortness of breath, no cough, no congestion CV: No chest pain, no dyspnea on exertion, no palpitations GI: No nausea, no vomiting, no diarrhea, no pain, no constipation : No frequency, no urgency, no dysuria MUSC/SKEL: No joint pain, no back pain SKIN: No rash PSYCH: No hallucinations, no depression HEME/LYMPH: No easy bleeding or bruising tendencies NEURO: No weakness, no headache Past Medical History Past Medical History CARDIAC: Negative Congestive Heart Failure RESPIRATORY: Negative Chronic Obstructive Pulmonary Disease (COPD) GENITOURINARY: Negative Renal Disease ENDOCRINE: Negative Diabetes Mellitus Type 1 or Diabetes Mellitus Type 2 PSYCHO/SOCIAL: Positive Schizophrenia, Bipolar Disorder, Depression and Anxiety OTHER HISTORY: Negative Cancer Social History SMOKING STATUS: Never smoker ED Exam Narrative Physical exam: [General: Not in any acute distress Head normocephalic HEENT: Within acceptable limits Neck is supple nontender Chest equal chest rise nontender to palpation Respiratory: Clear to auscultation no wheezes crackles or rubs CV: Rate rhythm is regular, tachycardic, no murmurs rubs or clicks Abdomen is soft nontender no masses positive bowel sounds all 4 quadrants Back: No CVA tenderness no spinous process tenderness from cervical spine thoracic and lumbar spine Skin: Intact no petechiae rash induration ulceration or crepitus Extremities: Moving all extremity against resistance cap refill less than 2 seconds neurosensory intact Neuro: Awake alert oriented x3 Glascow coma 15 no focal deficits] Course Course Course Narrative: Patient is cooperative and polite, allowing a physical exam but refusing all medications or interventions. At this time the patient will be discharged back to [facility] Quality Measures none Orders Category Date Time Status Diazepam Inj [Valium Inj] Med 01/02/25 14:21 Discontinued 10 mg IM X1 ONE Vital Signs Vital signs: Vital Signs Temperature 98.4 F 01/02/25 14:06 Pulse Rate 139 H 01/02/25 14:06 Respiratory Rate 20 01/02/25 14:06 Blood Pressure 150/90 H 01/02/25 14:06 Pulse Oximetry (%) 96 01/02/25 14:06 Oxygen Delivery Method Room Air 01/02/25 14:06 Discharge Plan Plan Patient Disposition: Long-Term/Court/Law Patient condition on transfer: Stable Prescriptions/Referrals Prescriptions/Med Rec: No Action olanzapine 5 mg tablet 5 mg PO DAILY Patient Comments: TAKE 1 TABLET BY MOUTH EVERY DAY FOR 30 DAYS gabapentin 300 mg capsule 100 mg PO TID Referrals: No Primary/Family,Physician [Primary Care Provider] - In 1 week Problem List Clinical Impression: Medical clearance for incarceration, Tachycardia Patient/Caregiver Discharge Instructions Print Language: [place]an PA/PHYSICIAN ASST Supervising Physician PA/PHYSICIAN ASST Supervising Physician: Ankush Carnes ENP, MD Attestation MD Attestation The patient was seen by the midlevel practitioner. I, the co-signing physician, was present during the entire ER visit. While I did not physically examine the patient, I was available for consultation as needed. I agree with the plan and documentation. MDM Clinical Information Provided by patient and law enforcement Medical Records Reviewed [facility] Meds/Rx Considered, not Ordered None Labs/Rad/Tests considered, not Ordered None Chronic Illness/Social Conditions which may negatively complicate care or outcome(s)-explain: ETOH/drugs/substance abuse EKG EKG not done Lab Interpretation Labs: none Imaging Imaging interpretation: none Medication Administration(s) Medication Administration History Discontinued Medications Diazepam (Diazepam Inj 5 Mg/Ml Vial 2 Ml) 10 mg IM X1 ONE Stop: 01/02/25 14:22 Last Admin: 01/02/25 14:35 Dose: Not Given Documented By: RENU Non-Admin Reason: Patient Refused
== END 2025-01-02 15:15 ==
PROVIDERS: Emergency Provider Family Medicine
DX: Z02.89 Encounter for other administrative examinations (principal); R00.0 Tachycardia, unspecified
CPT/HCPCS: 99282

== ENCOUNTER 2025-01-26 01:15 | Observation (INO) | payer MEDICAID, SELFPAY ==
[2025-01-26] VITALS (59 sets, daily range): BP systolic 93–160; BP diastolic 40–116; PULSE 77–149; RESP 12–98; TEMP 36.6–38; O2SAT 70–100; BMI 68.1
--- NOTE | 2025-01-26 01:31 | EDNOTE_ITS ---
ED Medical Clearance RME/HPI General Chief complaint: Medical Clearance Stated complaint: MEDICAL CLEARANCE Time Seen by Provider: 01/26/25 01:30 Arrival date/time: 01/26/25 01:15 RME / HPI RME / HPI Narrative: Dr. Blake?s Main ED Evaluation: 34yo male with a history of bipolar disorder, methamphetamine abuse BIB [facility] presents to the ED for a medical clearance. Patient was released from police custody this afternoon and was arrested [place] he was [place] the middle [place]. Patient is not cooperating and is not providing any history. Related Information Home Medications ?Medication ?Instructions ?Recorded ?Confirmed olanzapine 5 mg tablet 5 mg PO DAILY 03/13/2405/22 gabapentin 300 mg capsule 100 mg PO TID 05/22/2405/22 Allergies Allergy/AdvReac Type Severity Reaction Status Date / Time No Known Allergies Allergy Verified 05/22/24 16:27 Review of Systems Review of Systems Systems Reviewed: All systems reviewed, normal except as documented Past Medical History Past Medical History CARDIAC: Negative Congestive Heart Failure RESPIRATORY: Negative Chronic Obstructive Pulmonary Disease (COPD) GENITOURINARY: Negative Renal Disease ENDOCRINE: Negative Diabetes Mellitus Type 1 or Diabetes Mellitus Type 2 PSYCHO/SOCIAL: Positive Schizophrenia, Bipolar Disorder, Depression and Anxiety OTHER HISTORY: Negative Cancer Social History SMOKING STATUS: Never smoker ED Exam Narrative Physical exam: Generally patient is altered and combative, skin is diaphoretic, heart tachycardic rate with regular rhythm, lungs are clear to auscultation, abdomen is soft nondistended, head is normocephalic atraumatic, eyes pupils equal round reactive to light, neurologic exam shows the patient to be moving all 4 extremities and able to walk but very combative and anxious here in the emergency room Course Quality Measures none Orders Category Date Time Status 2 HR Behavioral Restraints Q15M Care 01/26/25 03:20 Active EKG (ED ONLY) *Do not use* NOW Care 01/26/25 02:21 Active EKG (ED Only) Stat Exams 01/26/25 02:21 Ordered Alcohol, Blood Medical Stat Lab 01/26/25 01:40 Completed CBC Stat Lab 01/26/25 01:40 Completed CMP [Comprehensive Metabolic Panel] Stat Lab 01/26/25 01:40 Completed Creatine Kinase Stat Lab 01/26/25 01:40 Completed Drug Screen,Urine Stat Lab 01/26/25 02:10 Completed Diazepam Inj [Valium Inj] Med 01/26/25 01:31 Discontinued 10 mg IVP X1 ONE DiphenhydrAMINE INJ [Benadryl Inj] Med 01/26/25 01:31 Discontinued 50 mg IVP X1 ONE Haloperidol Lactate [Haldol Inj] Med 01/26/25 01:31 Active 10 mg IV Q6HR PRN Ketamine Inj Med 01/26/25 01:36 Discontinued 400 mg IM X1 ONE Sodium Chloride 0.9% 1000 ml [Ns] 1,000 ml Med 01/26/25 02:20 Discontinued IV 999 mls/hr Vital Signs Vital signs: Vital Signs Temperature 99.1 F 01/26/25 01:33 Pulse Rate 149 H 01/26/25 01:33 Respiratory Rate 22 H 01/26/25 01:33 Pulse Oximetry (%) 91 L 01/26/25 01:33 Oxygen Delivery Method Room Air 01/26/25 01:33 Medical Clearance MDM Narrative MDM Narrative:: Scribe Attestation: 01/26/25 - Corry Carver am scribing for and in the presence of Dr. Blake. Differential diagnosis: Drug intoxication, alcohol intoxication Patient required sedation with 400 mg of ketamine IM. An IV was then established. Blood work was obtained as well as urine that was sent to lab for analysis. Urinary tox screen was positive for amphetamine. Alcohol level is negative. No electrolyte abnormality. CPK was 565. Patient was hydrated with a liter normal saline. Patient then required more sedation with Valium 10 mg IV, Benadryl 50 mg IV, Haldol 10 mg IV. Patient will require admission to the hospital for further treatment and evaluation for his methamphetamine overdose. Patient data External records reviewed:: [facility] previous records (Per chart review, patient was seen here on 01/02/25 for a medical clearance.) Clinical information provided by:: law enforcement Social determinants that could affect healthcare access:: substance use Patient has the following chronic illnesses:: bipolar disorder How is presenting disease/condition affected by chronic disease/condition?: exacerbated by Evaluation data The following diagnostics were reviewed and interpreted by me:: lab results Lab and/or radiology exams considered but not ordered:: none Interpretation Summary: See MDM. Medications / Prescriptions Medications or Prescriptions considered but not ordered:: none Medication administrations:: Medication Administration History Haloperidol Lactate (Haloperidol Lact Inj 5 Mg/Ml Vial) 10 mg IV Q6HR PRN PRN Reason: AGITATION (SEVERE) Stop: 02/25/25 01:30 Last Admin: 01/26/25 02:59 Dose: 10 mg Documented By: SPRING Discontinued Medications Diazepam (Diazepam Inj 5 Mg/Ml Vial 2 Ml) 10 mg IVP X1 ONE Stop: 01/26/25 01:32 Last Admin: 01/26/25 02:58 Dose: 10 mg Documented By: SPRING Diphenhydramine HCl (Diphenhydramine Inj 50 Mg/Ml Vial) 50 mg IVP X1 ONE Stop: 01/26/25 01:32 Last Admin: 01/26/25 02:58 Dose: 50 mg Documented By: SPRING Sodium Chloride (Ns) 1,000 mls @ 999 mls/hr IV .Q1H1M ONE Stop: 01/26/25 03:20 Last Admin: 01/26/25 02:59 Dose: 999 mls/hr Documented By: SPRING Ketamine HCl (Ketamine 50 Mg/Ml Vial 10 Ml) 400 mg IM X1 ONE Stop: 01/26/25 01:37 Last Admin: 01/26/25 01:42 Dose: 400 mg Documented By: IRMA see above Consultations Consultation(s) initiated? (list below): No Diagnosis Medical Clearance Differential Diagnosis: other (See MDM.) Most likely diagnosis given after review of the tests above:: see clinical impression below Admission Indicated Admission indicated?: indicated Admission Request Was there a request for admission?: Yes Admission Attestation Admission request attestation: Discussed case with [] from Hospitalist service regarding admission. Discussed patients ED course, exam findings, labs, and radiology results. The Hospitalist [agrees,declines] to accept the patient for admission. Disposition Plan Disposition Plan: Admit Critical Care Time Critical Care Time Critical Care Time: Yes Total Critical Care Time (min.): 35 Attestation: Excluding other billable procedures Discharge Plan Plan Patient Disposition: Admit Acute Care w/in Hospital Prescriptions/Referrals Prescriptions/Med Rec: No Action olanzapine 5 mg tablet 5 mg PO DAILY Patient Comments: TAKE 1 TABLET BY MOUTH EVERY DAY FOR 30 DAYS gabapentin 300 mg capsule 100 mg PO TID Problem List Clinical Impression: Overdose of methamphetamine Patient/Caregiver Discharge Instructions Print Language: Kinyarwanda Stand Alone Forms: [facility] Award Info., Patient Portal Info Letter
[2025-01-26] MEDS: KETAMINE 50 MG/ML VIAL 10 ML 400 MG IM (01:42)
[2025-01-26 01:50] LABS: Basophils # (Auto) 0.1 Thou/mm3 (0.0-0.2); Basophils % (Auto) 1 % (0-2.5); Eosinophils # (Auto) 0.0 Thou/mm3 (0.0-0.5); Eosinophils % (Auto) 0 % (0-10); Hematocrit 43.9 % (41.0-53.0); Hemoglobin 15.3 g/dL (13.5-16.0); Immature Granulocytes Auto 0.06 Thou/mm3 (0.00-0.00); Lymphocytes # (Auto) 2.5 Thou/mm3 (1.0-4.8); Lymphocytes % (Auto) 18 % (10-50); Mean Corpuscular HGB Conc 34.9 g/dl (31.0-37.0); Mean Corpuscular Hemoglobin 30.8 pg (25.0-35.0); Mean Corpuscular Volume 89 fL (80-100); Monocytes # (Auto) 1.6 Thou/mm3 (0.0-0.8); Monocytes % (Auto) 11 % (0-12); Neutrophils # (Auto) 10.0 Thou/mm3 (1.8-7.7); Neutrophils % (Auto) 70 % (37-80); Nucleated Red Blood Cell # 0.00 Thou/mm3 (0.00-0.00); Nucleated Red Blood Cell % 0 /100 WBC (0); Platelet Count 315 Thou/mm3 (140-440); RDW Standard Deviation 42.2 fL (35.1-43.9); Red Blood Count 4.96 Miln/mm3 (4.50-5.90); White Blood Count 14.4 Thou/mm3 (3.8-10.6)
[2025-01-26 02:55] LABS: Alanine Aminotransferase 69 U/L (10-49); Albumin, Serum 5.5 gm/dL (3.5-5.0); Albumin/Globulin Ratio 2.1 (1.2-2.2); Alcohol, Blood Medical < 3.0 mg/dL (0-10.0); Alkaline Phosphatase 74 U/L (46-116); Anion Gap 19 (7-16); Aspartate Amino Transferase 59 U/L (0-34); BUN/Creatinine Ratio 14 Ratio (12-20); Bilirubin,Total 2.9 mg/dL (0.3-1.2); Blood Urea Nitrogen 30 mg/dL (9-23); Calcium 10.9 mg/dL (8.3-10.6); Calcium (Corrected) 10.9 mg/dL (8.5-10.1); Carbon Dioxide 22.6 mMol/L (20.0-31.0); Chloride 104 mMol/L (98-107); Creatine Kinase 565 U/L (34-171); Creatinine (Component) 2.1 mg/dL (0.6-1.3); Estimated Creatinine Clearance 74.0 mL/min (>60); Globulin 2.6 gm/dL (2.3-3.5); Glucose 115 mg/dL (74-106); Osmolality,Calculated 297 (275-295); Potassium 4.8 mMol/L (3.4-5.1); Sodium 146 mMol/L (136-145); Total Protein 8.1 gm/dL (5.7-8.2); eGFR 41 See Note
[2025-01-26] MEDS: DIAZEPAM INJ 5 MG/ML VIAL 2 ML 10 MG IVP (02:58)
[2025-01-26] MEDS: HALOPERIDOL LACT INJ 5 MG/ML VIAL 10 MG IV (02:59)
[2025-01-26] MEDS: SODIUM CHLORIDE 0.9% 1000 ML 1,000 ML 999 ML IV ×2 (02:59→04:36)
[2025-01-26 03:06] LABS: Amphetamine/Methamp Scrn,U Positive (Negative); Barbiturate Screen,Urine Negative (Negative); Benzodiazepines Screen,Urine Negative (Negative); Benzoylecgonine Screen, Ur Negative (Negative); Fentanyl Screen,Urine Negative (Negative); Opiate Screen,Urine Negative (Negative); THC Screen,Urine Negative (Negative)
[2025-01-26 04:52] LABS: Base Excess, Venous -5 (-3-3); O2 Saturation, Venous 75 % (96-97); PCO2, Venous 41 mmHg (36-56); PO2, Venous 45 mmHg (15-58); pH, Venous 7.33 (7.33-7.66)
[2025-01-26 05:00] LABS: Beta Hydroxybutyrate 2.9 mmol/L (<0.6)
--- NOTE | 2025-01-26 05:25 | XR_ITS ---
Examination: AP chest single view Technique: AP portable supine chest single view Date and time: January 26 thousand 25, 0506 hrs., Comparison May 04, 2024 Indications: Chest pain coughing today. Findings: Mild enlargement left ventricle. Reduced inspiratory effort. No pneumonia or pulmonary edema. The osseous structures are intact. Impression: No pneumonia or pulmonary edema
--- NOTE | 2025-01-26 05:27 | PD.HHHP ---
Documentation for date of: 01/26/25 HPI - Hospitalist History of Present Illness History of Present Illness: Acute encephalopathy History of present illness: 34yo male with a history of bipolar disorder, methamphetamine abuse BIB police to the ED for a medical clearance. Patient was released from police custody this afternoon and was arrested after he was running in the middle of a [place], the time of examination in the ED patient was encephalopathic in setting of sedative medications administered, no history was obtained from patient. Patient's vitals were noted for BP 160/90, labs noted for creatinine of 2.1, anion gap metabolic acidosis likely in setting of starvation ketosis with elevated CK and UTOX positive for methamphetamine. Review of Systems Review of Systems ROS Unobtainable: unobtainable due to mental status Past Medical History Past Medical History CARDIAC: Negative Congestive Heart Failure RESPIRATORY: Negative Chronic Obstructive Pulmonary Disease (COPD) GENITOURINARY: Negative Renal Disease ENDOCRINE: Negative Diabetes Mellitus Type 1 or Diabetes Mellitus Type 2 PSYCHO/SOCIAL: Positive Schizophrenia, Bipolar Disorder, Depression and Anxiety OTHER HISTORY: Negative Cancer Social History SMOKING STATUS: Never smoker Meds Home Medications and Allergies Home Medications ?Medication ?Instructions ?Recorded ?Confirmed ?Type olanzapine 5 mg tablet 5 mg PO DAILY 03/13/24 05/22/24 History gabapentin 300 mg capsule 100 mg PO TID 05/22/24 05/22/24 History Allergies Allergy/AdvReac Type Severity Reaction Status Date / Time No Known Allergies Allergy Verified 05/22/24 16:27 Exam Vital Signs Temp Pulse Resp BP Pulse Ox O2 Del Method 100.4 F 132 H 30 H 160/97 H 95 Room Air 01/26/25 02:25 01/26/25 02:25 01/26/25 02:25 01/26/25 02:25 01/26/25 02:01/26/25 02:25 Narrative General: Morbidly obese, somnolent, minimally responsive, but does not appear in distress. HEENT: Normocephalic, atraumatic, anicteric, EOM intact, PERRLA Heart: Tachycardic, no murmur or gallop. Lungs: Tachypneic but clear to auscultation with equal breath sounds bilaterally. Chest: Small abrasions noted multiple areas of chest, no signs of skin infection Abdomen: Bowel sounds normal, no tenderness or guarding, no CVA tenderness Extremities: Sensation, circulation, motor function intact and equal in all extremities. Neurologic: Deferred as patient heavily sedated due to agitation Results - Hospitalist Labs Diagrams: 01/26/25 01:40 01/26/25 01:40 Labs: Short CBC 01/26/25 Range/Units 01:40 WBC 14.4 H (3.8-10.6) Thou/mm3 Hgb 15.3 (13.5-16.0) g/dL Hct 43.9 (41.0-53.0) % Plt Count 315 (140-440) Thou/mm3 BMP 01/26/25 01:40 Sodium 146 H Potassium 4.8 Chloride 104 Carbon Dioxide 22.6 BUN 30 H Creatinine 2.1 H Glucose 115 H Calcium 10.9 H Cardiac Enzymes 01/26/25 Range/Units 01:40 Total Creatine Kinase 565 H D (34-171) U/L Liver Function 01/26/25 Range/Units 01:40 Total Bilirubin 2.9 H (0.3-1.2) mg/dL AST 59 H (0-34) U/L ALT 69 H (10-49) U/L Alkaline Phosphatase 74 (46-116) U/L Albumin 5.5 H (3.5-5.0) gm/dL ABG Interpretation ABG results: 01/26/25 04:35 VBG pH 7.33 VBG pCO2 41 VBG pO2 45 VBG Base Excess -5 L Assessment & Plan -Hospitalist Additional Assessment 34yo male with a history of bipolar disorder, methamphetamine abuse BIB police to the ED for a medical clearance. Patient was released from police custody this afternoon and was arrested after he was running in the middle of a highway, the time of examination in the ED patient was encephalopathic in setting of sedative medications administered, no history was obtained from patient. Patient's vitals were noted for BP 160/90, labs noted for creatinine of 2.1, anion gap metabolic acidosis likely in setting of starvation ketosis with elevated CK and UTOX positive for methamphetamine. #AYAAN #AGMA #Elevated CK #Starvation ketosis Likely in setting of starvation and dehydration Cr 2.1 VBG PH 7.33, BHB 2.9 (After patient was given 2L of IVF) In ED, patient was given IVB NS 1L x2 Patient was given 1L of D5 NS bolus Patient was started on D5 NS 150 cc/HR Patient started on thiamine Follow-up renal panel Replete electrolytes as needed #Schizophrenia #Bipolar Disorder #Depression Resume home meds once reconciled outpatient services director referral #Substance Abuse U Tox was positive for methamphetamine outpatient services director referral Health maintenance: DVT prophylaxis: Heparin 5000 SC BID daily Diet: NPO IV access: PIV CODE STATUS: Full code Quality Measures Quality Measures VTE prophylaxis
--- NOTE | 2025-01-26 05:46 | PC.NURSE ---
Addendum entered by YANG Hughes 01/26/25 05:52: this nurse note was backcharted for 0500 Original Note: upon trial of removal of 2 hour restraint, pt started to thrash,be uncooperative, and pull at medical equipment. need for additional 2 hour restraints was noted and provider was made aware and okd the order.
[2025-01-26 05:47] LABS: Phosphorous 5.1 mg/dL (2.4-5.1)
[2025-01-26] MEDS: DEXTROSE 5%-NS 1,000 ML 150 ML IV ×3 (07:03→22:23)
[2025-01-26 08:16] LABS: Anion Gap 14 (7-16); BUN/Creatinine Ratio 17 Ratio (12-20); Blood Urea Nitrogen 22 mg/dL (9-23); Calcium 8.9 mg/dL (8.3-10.6); Carbon Dioxide 22.7 mMol/L (20.0-31.0); Chloride 108 mMol/L (98-107); Creatinine (Component) 1.3 mg/dL (0.6-1.3); Estimated Creatinine Clearance 119.5 mL/min (>60); Glucose 94 mg/dL (74-106); Magnesium 2.1 mg/dL (1.6-2.6); Osmolality,Calculated 292 (275-295); Potassium 3.8 mMol/L (3.4-5.1); Sodium 145 mMol/L (136-145); eGFR > 60 See Note
[2025-01-26 08:33] LABS: Albumin, Serum 4.4 gm/dL (3.5-5.0); Calcium (Corrected) 8.9 mg/dL (8.5-10.1); Phosphorous 4.8 mg/dL (2.4-5.1)
--- NOTE | 2025-01-26 08:52 | PC.NURSE ---
CALLED DR. SCHWARTZ TO CONFIRM ORDER FOR D5-NS 1,000ML BOLUS. INFORMED MD PATIENT'S CMP RESULTS HAVE COME BACK. PER MD OKAY TO CANCEL THE ORDER FOR D5-NS BOLUS BUT START MAINTENANCE FLUIDS OF D5-NS @ 150ML/HR.
--- NOTE | 2025-01-26 17:41 | PC.NURSE ---
REPORT CALLED TO MONIKA MEYERS. NO FURTHER QUESTIONS
--- NOTE | 2025-01-26 18:41 | PC.CC ---
.SilverlorenzopatelCarlton bustamante is a 34-year-old male admitted for Acute Encephalopathy. Film Drying Machine Operator made contact with Pt at bedside to complete initial and discuss discharge disposition. Role and reason for the contact was explained to Pt. Demographic information was verified. Pt reported he is transient and stays at local shelters.Pt identified his Mother Vanessa Rodriguez [phone] as his surrogate decision maker. Pt is independent with all ADLs. Pt utilizes wheelchair as source of DME. Pt?s choice of pharmacy is [facility] [place] [address]. PCP is Dequan Blake. Discharge Plan: Local [place] [facility] Next of Kin: Mother Vanessa Rodriguez [phone] PCP: Dequan Blake
--- NOTE | 2025-01-26 19:52 | ESPR_ITS ---
<Statement entered by Dorinda Caballero MD - 01/31/25 07:15> I reviewed above note and agree with findings and plans. I have also personally examined the patient with medicine team and went over assessment and plan with medical team including administration internship and resident physician. <Statement entered by Shabbir Salcedo MD - 01/27/25 21:45> Note reviewed and agree with care plan as documented. Please refer to the note below for further details. Plan discussed with attending physician Shabbir Salcedo MD PGY-2 Internal Medicine Documentation for date of: 01/26/25 Subjective Subjective Interval history: Patient was seen and examined at bedside. No acute events took place overnight. Yesterday afternoon, patient had been released from police custody. He was arrested again later in the day for running across [address]. Patient was seen sleeping comfortably in his bed. He was approachable and responded to questions asked from him politely. He denied MARTINEZ, chest pain, abdominal pain, GI symptoms, urinary symptoms, Exam Vital Signs Temp Pulse Resp BP Pulse Ox O2 Del Method 97.8 F 102 H 20 104/83 98 Room Air 01/26/25 18:20 01/26/25 18:20 01/26/25 18:20 01/26/25 18:20 01/26/25 18:20 01/26/25 18:20 Narrative Exam General: Alert and oriented x3, No apparent distress. Morbidly obese Skin: Intact, Warm, no rashes. Small Abrasions noted on multiple areas of the chest. HEENT: Normocephalic, Atraumatic. Normal neck range of motion, Supple. Trachea midline. Respiratory: Lungs are clear to auscultation, Breath sounds are equal bilaterally with equal chest expansion. Cardiovascular: RRR, normal S1, S2, No murmurs. Distal pulses 2+ Abdomen: Abdomen soft, non-distended, without erythema, or lesions. Normotensive bowel sounds x4. Percussion tympanic. Palpation nontender in all four quadrants. No organomagely. No guarding or rebound present. Musculoskeletal/Extremities: No erythema, swelling, tenderness of any joints. No edema of BLE. DP pulses +2/3 b/l. Full active ROM of all four extremities. Neurologic: NEURO: Oriented x3, cranial nerves II to XII grossly intact. Cerebellar exam ([id number], [id number]-[id number]) intact. Muscle strength 5/5 on UE and LE b/l, Moves extremities x4. Sensation intact to gross touch along C6-T1 and L2-S1 dermatomes. No focal neurologic deficits noted Psych: Thoughts linear and responses appropriate. Objective Labs 01/27/25 08:11 01/27/25 04:49 Labs: Laboratory Results - last 24 hr 01/26/25 01/26/25 01/26/25 01:40 02:10 04:35 WBC 14.4 H RBC 4.96 Hgb 15.3 Hct 43.9 MCV 89 MCH 30.8 MCHC 34.9 RDW Std Deviation 42.2 Plt Count 315 Neut % (Auto) 70 Lymph % (Auto) 18 [place] % (Auto) 11 Eos % (Auto) 0 Baso % (Auto) 1 Neut # (Auto) 10.0 H Lymph # (Auto) 2.5 [place] # (Auto) 1.6 H Eos # (Auto) 0.0 Baso # (Auto) 0.1 Immature Gran # (Auto) 0.06 H Absolute Nucleated RBC 0.00 Immature Gran % 0 Nucleated RBC % 0 VBG pH 7.33 VBG pCO2 41 VBG pO2 45 VBG O2 Sat (Vikas) 75 L VBG Base Excess -5 L Sodium 146 H Potassium 4.8 Chloride 104 Carbon Dioxide 22.6 Anion Gap 19 H BUN 30 H Creatinine 2.1 H Estim Creat Clear Calc 74.0 eGFR 41 L BUN/Creatinine Ratio 14 Glucose 115 H Calculated Osmolality 297 H Calcium 10.9 H Corrected Calcium 10.9 H Phosphorus 5.1 Magnesium Total Bilirubin 2.9 H AST 59 H ALT 69 H Alkaline Phosphatase 74 Total Creatine Kinase 565 H D Total Protein 8.1 Albumin 5.5 H Globulin 2.6 Albumin/Globulin Ratio 2.1 Beta-Hydroxybutyrate/Acetoacetate 2.9 H Urine Opiates Screen Negative Urine Fentanyl Screen Negative Ur Barbiturates Screen Negative U Amphetamin/Meth Scrn Positive A U Benzodiazepines Scrn Negative U Cocaine Metab Screen Negative U Marijuana (THC) Screen Negative Ethyl Alcohol < 3.0 01/26/25 07:06 WBC RBC Hgb Hct MCV MCH MCHC RDW Std Deviation Plt Count Neut % (Auto) Lymph % (Auto) [place] % (Auto) Eos % (Auto) Baso % (Auto) Neut # (Auto) Lymph # (Auto) [place] # (Auto) Eos # (Auto) Baso # (Auto) Immature Gran # (Auto) Absolute Nucleated RBC Immature Gran % Nucleated RBC % VBG pH VBG pCO2 VBG pO2 VBG O2 Sat (Vikas) VBG Base Excess Sodium 145 Potassium 3.8 D Chloride 108 H Carbon Dioxide 22.7 Anion Gap 14 BUN 22 Creatinine 1.3 D Estim Creat Clear Calc 119.5 eGFR > 60 BUN/Creatinine Ratio 17 Glucose 94 Calculated Osmolality 292 Calcium 8.9 D Corrected Calcium 8.9 D Phosphorus 4.8 Magnesium 2.1 Total Bilirubin AST ALT Alkaline Phosphatase Total Creatine Kinase Total Protein Albumin 4.4 D Globulin Albumin/Globulin Ratio Beta-Hydroxybutyrate/Acetoacetate Urine Opiates Screen Urine Fentanyl Screen Ur Barbiturates Screen U Amphetamin/Meth Scrn U Benzodiazepines Scrn U Cocaine Metab Screen U Marijuana (THC) Screen Ethyl Alcohol ABG Interpretation ABG results: 01/26/25 04:35 VBG pH 7.33 VBG pCO2 41 VBG pO2 45 VBG Base Excess -5 L Quality Measures Quality Measures none Assessment & Plan Assessment Current Active Medications: Generic Name Dose Route Start Last Admin Trade Name Freq PRN Reason Stop Dose Admin Acetaminophen 650 mg 01/26/25 05:13 Acetaminophen 325 Mg Tablet PO 02/25/25 05:12 Q6H PRN Fever >101.5 Haloperidol Lactate 10 mg 01/26/25 01:31 01/26/25 02:59 Haloperidol Lact Inj 5 Mg/Ml Vial IV 02/25/25 01:30 10 mg Q6HR PRN Administration AGITATION (SEVERE) Heparin Sodium (Porcine) 5,000 unit 01/26/25 09:00 01/26/25 11:04 Heparin Sod Inj 5000 Unit/Ml Vial SC 02/09/25 08:59 Not Given BID LUIGI Dextrose/Sodium Chloride 1,000 mls @ 150 mls/hr 01/26/25 05:15 01/26/25 15:23 D5-Ns IV 02/25/25 05:14 150 mls/hr .Q6H40M LUIGI Administration Thiamine HCl 500 mg 01/26/25 09:00 01/26/25 11:04 Thiamine Inj 100 Mg/Ml Vial 2 Ml IVP 02/25/25 08:59 Not Given QDAY LUIGI Plan 34M with MHx of bipolar disorder, methamphetamine abuse who was BIB [facility] [employer] for altered mental status as patient had been running across freeway. #AYAAN, resolved Cr 2.1 and BUN 30 elevated above baseline 1.1 and 20 baseline In ED, patient was given IVB NS 1L x2 Repeat renal panel showed Cr 1.3 and BUN 22 about 5.5h later. Anion Gap closed 14 (19) Plan: -IV D5-NS @150mL/h -CBC and RP AM draw -Monitor kidney function, dose meds renally appropriate, and avoid nephrotoxins #Schizophrenia #Bipolar Disorder #Depression Patient has a hx of psychiatric problems per taken hx and chart review. Home meds include olanzapine 5mg and gabapentin 300mg TID. In ED, Patient required sedation with Valium (diazepam) 10 mg IV, Benadryl 50 mg IV, Haldol 10 mg IV. Plan: -thiamine IVP 500mg QD -marketing services rep referral -acetaminophen 650mg Q6h PRN #Substance Abuse U Tox was positive for methamphetamine #Pneumonia, ruled out Pt stated that he he had been coughing and had chest pain. WBC 14.4. CXR was negative for pneumonia or pulmonary edema Health Maintanence: Disposition: pending discharge, currently monitoring kidney function improvement and mental status stability PPx DVT: heparin subq Diet: Regular Code Status: full This case was discussed with my attending physician, Dr. Caballero, and senior resident, Dr Denisse Middleton. Nestor Patterson, DO PGY I
[2025-01-26] MEDS: HEPARIN SOD INJ 5000 UNIT/ML VIAL SC (20:27)
[2025-01-27] VITALS (7 sets, daily range): BP systolic 106–126; BP diastolic 65–87; PULSE 73–99; RESP 16–98; TEMP 36.2–36.4; O2SAT 95–98; BMI 67.7
[2025-01-27] MEDS: DEXTROSE 5%-NS 1,000 ML 150 ML IV (05:09)
[2025-01-27 06:28] LABS: Basophils # (Auto) 0.0 Thou/mm3 (0.0-0.2); Basophils % (Auto) 1 % (0-2.5); Eosinophils # (Auto) 0.1 Thou/mm3 (0.0-0.5); Eosinophils % (Auto) 3 % (0-10); Hematocrit 35.9 % (41.0-53.0); Hemoglobin 12.1 g/dL (13.5-16.0); Immature Granulocytes Auto 0.01 Thou/mm3 (0.00-0.00); Lymphocytes # (Auto) 1.7 Thou/mm3 (1.0-4.8); Lymphocytes % (Auto) 53 % (10-50); Mean Corpuscular HGB Conc 33.7 g/dl (31.0-37.0); Mean Corpuscular Hemoglobin 30.3 pg (25.0-35.0); Mean Corpuscular Volume 90 fL (80-100); Monocytes # (Auto) 0.3 Thou/mm3 (0.0-0.8); Monocytes % (Auto) 8 % (0-12); Neutrophils # (Auto) 1.1 Thou/mm3 (1.8-7.7); Neutrophils % (Auto) 35 % (37-80); Nucleated Red Blood Cell # 0.00 Thou/mm3 (0.00-0.00); Nucleated Red Blood Cell % 0 /100 WBC (0); Platelet Count 160 Thou/mm3 (140-440); RDW Standard Deviation 43.0 fL (35.1-43.9); Red Blood Count 3.99 Miln/mm3 (4.50-5.90); White Blood Count 3.2 Thou/mm3 (3.8-10.6)
[2025-01-27 07:19] LABS: Albumin, Serum 3.2 gm/dL (3.5-5.0); Anion Gap 9 (7-16); BUN/Creatinine Ratio 11 Ratio (12-20); Blood Urea Nitrogen 9 mg/dL (9-23); Calcium 7.9 mg/dL (8.3-10.6); Calcium (Corrected) 8.5 mg/dL (8.5-10.1); Carbon Dioxide 23.1 mMol/L (20.0-31.0); Chloride 112 mMol/L (98-107); Creatinine (Component) 0.8 mg/dL (0.6-1.3); Estimated Creatinine Clearance 194.1 mL/min (>60); Glucose 105 mg/dL (74-106); Osmolality,Calculated 285 (275-295); Phosphorous 2.8 mg/dL (2.4-5.1); Potassium 3.7 mMol/L (3.4-5.1); Sodium 144 mMol/L (136-145); eGFR > 60 See Note
[2025-01-27 08:38] LABS: Basophils # (Auto) 0.0 Thou/mm3 (0.0-0.2); Basophils % (Auto) 1 % (0-2.5); Eosinophils # (Auto) 0.1 Thou/mm3 (0.0-0.5); Eosinophils % (Auto) 2 % (0-10); Hematocrit 35.4 % (41.0-53.0); Hemoglobin 11.9 g/dL (13.5-16.0); Immature Granulocytes Auto 0.01 Thou/mm3 (0.00-0.00); Lymphocytes # (Auto) 1.1 Thou/mm3 (1.0-4.8); Lymphocytes % (Auto) 35 % (10-50); Mean Corpuscular HGB Conc 33.6 g/dl (31.0-37.0); Mean Corpuscular Hemoglobin 30.2 pg (25.0-35.0); Mean Corpuscular Volume 90 fL (80-100); Monocytes # (Auto) 0.3 Thou/mm3 (0.0-0.8); Monocytes % (Auto) 9 % (0-12); Neutrophils # (Auto) 1.6 Thou/mm3 (1.8-7.7); Neutrophils % (Auto) 54 % (37-80); Nucleated Red Blood Cell # 0.00 Thou/mm3 (0.00-0.00); Nucleated Red Blood Cell % 0 /100 WBC (0); Platelet Count 145 Thou/mm3 (140-440); RDW Standard Deviation 43.2 fL (35.1-43.9); Red Blood Count 3.94 Miln/mm3 (4.50-5.90); White Blood Count 3.0 Thou/mm3 (3.8-10.6)
[2025-01-27] MEDS: THIAMINE INJ 100 MG/ML VIAL 2 ML 500 MG IVP (08:48)
[2025-01-27] MEDS: HEPARIN SOD INJ 5000 UNIT/ML VIAL SC (08:48)
--- NOTE | 2025-01-27 10:00 | ESDS_ITS ---
<Statement entered by Dorinda Caballero MD - 01/31/25 14:16> I reviewed above note and agree with findings and plans. I have also personally examined the patient with medicine team and went over assessment and plan with medical team including customer experience intern and resident physician. <Statement entered by Bill Zepeda MD - 01/27/25 15:05> Patient was examined with the team including attending physician. Note reviewed, I agree with the discharge plan as documented. - Bill Zepeda MD PGY 3 Disclaimer: The document may contain phonetic/typographic errors due to voice recognition software. Planned Discharge Date 01/27/25 DS: Providers Provider Date of admission: 01/26/25 05:13 Primary care physician: Physician No Primary/Family Admitting Provider: Lydia Jewell MD Attending Provider on Admission: Lydia Jewell MD Consults: 01/26/25 22:59 Health Equity Referral - Nutrition Routine Comment: Positive screening for nutrition needs. Health Equity Referral - Safety Routine Comment: Positive screening for safety needs. Health Equity Referral - Transportation Routine Comment: Positive screening for transportation needs. Attending Provider on DC: Dorinda Caballero MD Discharging Provider: Nestor Patterson DO PGY1 DS: Diagnosis Problem List Completed Was Problem List Reviewed/Reconciled?: Yes Hospital Course Hospital Course Hospital course: Found by police to be wandering across the freeway. Patient was released from police custody earlier in the afternoon. Labs were notable for creatinine of 2.1, and ion gap metabolic acidosis likely in the setting of starvation ketosis, elevated CK, and urine toxicology positive for methamphetamine. Patient's volume status was stabilized with IV NS 1 L x 2. Renal panel about 6 hours later showed improved creatinine 1.3 and BUN 22. Anion gap closed 14 (19). CK down trended to 565. Patient was counseled on substance use disorder and provided clear instructions about necessity to quit. On physical exam patient was noted to have some slurred speech and mild swelling of the tongue consistent with intermittent tardive dyskinesia. It was explained to the patient that he needs to follow up with outpatient psychiatry as the aforementioned symptom was most likely to be an adverse effect of the antipsychotic the patient was on. At the point of discharge, patient is medically stable and safe to return to long term. Imaging: Chest x-ray was negative for pneumonia or pulmonary edema Admission diagnosis: #AYAAN resolved #She is afraid anemia #Bipolar disorder #Depression #Substance abuse #Pneumonia, ruled out Discharge Instructions: - Continue taking all home medications as prescribed: Continue Olanzapine and Gabapentin. - Follow-up with PCP within 1-2 weeks of discharge - Please avoid illicit drug use. It may worsen your symptoms. - Return to ED if condition worsen. This case was discussed with my attending physician, Dr. Caballero, and senior resident, Dr Zepeda. Nestor Patterson, DO PGY I Status at Discharge Cognitive/behavioral status at discharge: stable Overall status at discharge: patient is back to baseline Time Spent with Patient Time attestation: Total time spent providing and/or coordinating discharge services: More than 50% of the total time of his hospital stay Time spent: Greater than 30 minutes Exam Vital Signs Temp Pulse Resp BP Pulse Ox O2 Del Method 97.3 F 96 20 110/67 98 Room Air 01/27/25 04:00 01/27/25 07:32 01/27/25 07:32 01/27/25 04:00 01/27/25 04:00 01/27/25 00:00 Narrative Exam Gen: Obese, A&O x4, not appear in distress. Heart: RRR, no murmur or gallop. Lungs: clear to auscultation with equal breath sounds bilaterally. Chest: Small abrasions noted multiple areas of chest, no signs of skin infection Abdomen: Bowel sounds normal, no tenderness or guarding, no CVA tenderness Neuro: cranial nerves II-XII intact. Sensation intact to gross touch. Muscle strength 5/5 with F/E of BUE and BLE. Discharge Plan Plan Patient Disposition: HOME (Self Care) Patient condition on transfer: Stable Care Plan Goals: - Continue taking all home medications as prescribed: Continue Olanzapine and Gabapentin. - Follow-up with PCP within 1-2 weeks of discharge - Please avoid illicit drug use. It may worsen your symptoms. - Return to ED if condition worsen. Prescriptions/Referrals Prescriptions/Med Rec: New olanzapine 10 mg tablet 10 mg PO QDAY Qty: 30 2RF gabapentin 300 mg capsule 300 mg PO TID 30 Days Qty: 90 1RF Apetigen Plus 12.5-16.9-790 mg/15 mL liquid 10 ml PO .qotherday 30 Days Qty: 237 0RF Referrals: No Primary/Family,Physician [Primary Care Provider] Patient/Caregiver Discharge Instructions Discharge Activity: resume usual activities Education Materials: Getting the Most from a Mental ..., Journaling for Mental Health, Treating Schizophrenia Print Language: Georgian Stand Alone Forms: [facility]una Award Info., Patient Portal Info Letter Discharge Order Discharge Orders: Discharge (Routine); Ordered 01/27/25 Ordered By: Dorinda Cabalelro Quality Discharge Quality Measures VTE prophylaxis
--- NOTE | 2025-01-27 10:08 | PC.SS ---
Addendum entered by Clarissa Machuca 01/27/25 13:10: SS spoke to nurse who states medications were sent to [facility]. This poses a delay so requested meds be switched to [facility] off [address] and patient can pick pulling machine tender medications. SS provided a bus pass and patient can then take bus to [facility]. [place] open at 8PM. [facility] is full and cannot take any new people. SS cancelled plan to [place] due to medication pick pulling machine tender and transportation barrier. Patient was provided community resource list, sack lunch, bus pass. Patient complaining about his tongue being swollen and wants answers. Nursing updated physician team. Addendum entered by Clarissa Machuca 01/27/25 11:52: SS spoke to nursing and we are waiting on physician team to evaluate patient as he is complaining of swollen tongue and slurred speech. Pending d/c to [facility] Addendum entered by Clarissa Machuca 01/27/25 10:23: SS contacted [facility] and they state they need a referral and a homeless verification letter which they do not yet have from patient's counselor. Their staff states if we send patient to the [facility] every other Tuesday from 1-3p.m. they can link them to their service. SS will set up transportation once nursing is ready to the [facility]. Original Note: Follow up note: SS and ORAL COMMUNICATION INSTRUCTOR met with patient to assess for any mental health needs or concerns. 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 No threat to himself or others. He has been trying to get a referral to the [facility]. Patient ready for discharge. SS inquired if patient has clothing and he responded that he did. He stated he had shorts and a tshirt. SS will order a sack lunch to go. SS will provide transportation to half-way. SS will call [facility] for referral or open male beds and if not, patient is agreeable to [facility].
--- NOTE | 2025-01-27 14:22 | PC.NURSE ---
pt discharging sack lunch provided, appropriate clothing at bedside, meds ordered and tranportation provided
--- NOTE | 2025-01-27 15:00 | PC.SS ---
Uber set up for pt going to [facility] picker/puller at [id number] in a white MONIKA Lopez
== END 2025-01-27 15:07 | disposition home or self-care (01) ==
LOC: SERX 03:31 → SERHOLD 11:11 → S2NX 01-28 06:55
PROVIDERS: Admitting Provider Student in an Organized Health Care Education/Training Program; Emergency Provider Emergency Medicine; Visit Provider Student in an Organized Health Care Education/Training Program
DX: N17.9 Acute kidney failure, unspecified (principal); E87.20 Acidosis, unspecified; R74.8 Abnormal levels of other serum enzymes; F20.9 Schizophrenia, unspecified; F31.9 Bipolar disorder, unspecified; F15.10 Other stimulant abuse, uncomplicated; Z65.3 Problems related to other legal circumstances; R05.9 Cough, unspecified; R07.9 Chest pain, unspecified; D64.9 Anemia, unspecified; Z59.01 Sheltered homelessness
CPT/HCPCS: 36415; 71045; 80053; 80069; 80307; 80320; 82010; 82550; 82803; 83735; 84100; 85025; 93005; 96361; 96372; 96374; 96375; 99284; G0378; J1200; J1630; J1644; J3360; J3411; J7030; J7042; G0480